=== PATIENT | female | born 1965 | race American Indian/Alaskan Native ===

== ENCOUNTER 2017-06-18 18:10 | Inpatient (IN) | payer SELFPAY ==
[2017-06-18] MEDS ORDERED: XYLOCAINE CARDIAC IV ONE ×2 (18:16→18:45)
[2017-06-18] MEDS ORDERED: QUELICIN IV ONE ×2 (18:17→18:43)
[2017-06-18] MEDS ORDERED: ATIVAN ONE (18:29)
[2017-06-18] MEDS ORDERED: ASPIRIN PR ONE (18:30)
[2017-06-18] MEDS ORDERED: CORDARONE IV ONE (18:30)
[2017-06-18] MEDS ORDERED: NITRO-BID 2% TP ONE (18:33)
--- NOTE | 2017-06-18 18:33 | Emergency Department Report ---
HPI - General Time Seen by Provider: 06/18/17 18:22 - HPI HPI: Room 18 The patient is a 51-year-old female brought in by EMS with decreased responsiveness and chest pain. EMS [facility] states they found the patient with "foam" coming out of her mouth and decreased responsiveness. EMS states they administered Narcan and the patient became more responsive but still appeared somewhat agitated and complained of chest pain. EMS states at that time the patient admitted to taking a "white powdery substance." In the ED the patient complained of chest pain but then went unresponsive. Patient was found to be in V. fib was defibrillated 1 with return of spontaneous circulation. EKG in the ED revealed evidence of STEMI and cardiology was called. Location: Cardiovascular system, see above Duration: [See above] Quality: [See above] Severity: Severe Modifying factors: [see above] Context: [see above] Mode of transportation: [not driving] ED Past Medical Hx - Past Medical History Additional medical history: Unknown - Surgical History Additional Surgical History: Unknown - Family History Family history: no significant - Social History Smoking Status: Unknown if ever smoked ED Review of Systems ROS: Stated complaint: OVERDOSE Other details as noted in HPI Comment: Unobtainable due to pts medical conditions Cardiovascular: chest pain Physical Exam - Physical Exam Physical Exam: GENERAL: The patient is well-developed disheveled appearing female lying on stretcher unresponsive HEENT: Normocephalic. Pupils 3 mm and reactive bilaterally. Extraocular motions are intact. Patient has moist mucous membranes. NECK: Supple. Trachea midline CHEST/LUNGS: Clear to auscultation. Sounds equal bilaterally with bagging after intubation HEART/CARDIOVASCULAR: Regular. There is tachycardia. There is no gallop rub or murmur. ABDOMEN: Abdomen is soft, nontender. Patient has normal bowel sounds. There is no abdominal distention. SKIN: There is no rash. There is no edema. There is no diaphoresis. NEURO: GCS 3T MUSCULOSKELETAL: There is no evidence of acute injury. ED Course - Consultations Consultation #1: 06/18/17 18:[address] Brock- Will reviewed EKG and call back 06/18/17 18:32 Dr. Brock states will take patient to the Reimbursement Counselor - Intubation Time Out Performed: No Sedative: Versed Mg Given: 5 Paralytic: Succinylcholine Mg Given: 100 Laryngoscope: Jodee Size: 3 ET Tube Size: 7 Tube Secured Depth (cm): 21 Tube Secured Location: lips Tube Placement Confirmation: equal breath sounds bilat, no breath sounds over epi, confirmation by capnometr Intubation Complications: other (initial attempt resulted in esophageal intubation. ET tube was removed patient reintubated endotracheally) ED Medical Decision Making - Lab Data Result diagrams: 06/18/17 18:25 06/18/17 18:25 Laboratory Tests 06/18/17 06/18/17 06/18/17 18:25 18:25 18:25 WBC 14.2 H RBC 4.74 Hgb 14.7 H Hct 44.7 H MCV 94 MCH 31 MCHC 33 RDW 14.5 Plt Count 266 Lymph % (Auto) 30.6 Stanley % (Auto) 6.6 Eos % (Auto) 0.3 Baso % (Auto) 0.5 Lymph # 4.3 Stanley # 0.9 H Eos # 0.0 Baso # 0.1 Seg Neutrophils % 62.0 Seg Neutrophils # 8.8 H PT 13.5 INR 0.98 APTT 29.9 Sodium 141 Potassium 4.1 Chloride 99.0 Carbon Dioxide 23 Anion Gap 23 BUN 8 Creatinine 1.1 Estimated GFR 44 BUN/Creatinine Ratio 7 Glucose 203 H Calcium 8.8 Total Creatine Kinase 96 CK-MB (CK-2) 1.7 CK-MB (CK-2) Rel Index 1.7 Troponin T < 0.010 - EKG Data -: EKG Interpreted by Me EKG shows normal: sinus rhythm - EKG Data When compared to previous EKG there are: previous EKG unavailable Interpretation: acute DE - Radiology Data Radiology results: report reviewed (chest x-ray), image reviewed (chest x-ray) interpreted by me: Chest x-ray-ET tube in appropriate position. No focal infiltrates, no pneumothorax - Differential Diagnosis STEMI, cardiac arrest Critical Care Time: Yes Critical care time in (mins) excluding proc time.: 40 Critical care attestation.: If time is entered above; I have spent that time in minutes in the direct care of this critically ill patient, excluding procedure time. ED Disposition Clinical Impression: Cardiac arrest, STEMI (ST elevation myocardial infarction) Disposition: DC-[id number] OP ADMIT IP TO THIS HOSP Is pt being admited?: Yes Does the pt Need Aspirin: Yes Condition: Serious Time of Disposition: 19:07 (awaiting ship laborer)
[2017-06-18 18:39] LABS: Basophils # (Auto) 0.1 K/mm3 (0.0-0.1); Basophils % (Auto) 0.5 % (0.0-1.8); Eosinophils % (Auto) 0.3 % (0.0-4.3); Hematocrit 44.7 % (30.3-42.9); Hemoglobin 14.7 gm/dl (10.1-14.3); Lymphocytes # (Auto) 4.3 K/mm3 (1.2-5.4); Lymphocytes % (Auto) 30.6 % (13.4-35.0); Mean Corpuscular HGB Conc 33 % (30-34); Mean Corpuscular Hemoglobin 31 pg (28-32); Mean Corpuscular Volume 94 fl (79-97); Monocytes # (Auto) 0.9 K/mm3 (0.0-0.8); Monocytes % (Auto) 6.6 % (0.0-7.3); Platelet Count 266 K/mm3 (140-440); Red Blood Count 4.74 M/mm3 (3.65-5.03); Red Cell Distribution Width 14.5 % (13.2-15.2)
[2017-06-18 18:43] LABS: INR 0.98 (0.87-1.13); Partial Thromboplastin Time 29.9 Sec. (24.2-36.6)
[2017-06-18 18:47] LABS: Creatine Kinase MB 1.7 ng/mL (0.0-4.0)
[2017-06-18 18:48] LABS: BUN/Creatinine Ratio 7; Blood Urea Nitrogen 8 mg/dL (7-17); Calcium 8.8 mg/dL (8.4-10.2); Hemolysis Index 6
[2017-06-18] MEDS ORDERED: NACL 0.9% 1000 ML 1,000 ML ONE (18:51)
[2017-06-18] MEDS ORDERED: HEPARIN 10,000 UNITS/10 ML ONE ×2 (18:56→19:11)
[2017-06-18] MEDS ORDERED: HEPARIN 10,000 UNITS/10 ML IV ONE (18:56)
[2017-06-18] MEDS ORDERED: MIDAZOLAM 100 MG in NACL 0.9% 80 ML IV SCH (19:00)
[2017-06-18] MEDS ORDERED: NACL 0.9% 1000 ML 1,000 ML IV ONE (19:00)
[2017-06-18] MEDS ORDERED: CORDARONE 900 MG in D5W 482 ML IV SCH (19:00)
[2017-06-18] MEDS ORDERED: HEPARIN/ 0.45% NACL-25,000 UNIT/500 ML 25,000 UNIT/500 ML BAG IV SCH (19:00)
[2017-06-18 19:06] LABS: Amphetamine Screen,Urine PRESUMPTIVE NEGATIVE; Benzodiazepines Screen,Urine PRESUMPTIVE NEGATIVE; Methadone Screen,Urine PRESUMPTIVE NEGATIVE; Opiate Screen,Urine PRESUMPTIVE NEGATIVE
[2017-06-18] MEDS ORDERED: XYLOCAINE 2% INFILTRATI ONE (19:11)
[2017-06-18] MEDS ORDERED: HEPARIN/NS 5000 UNIT/500ML(CATH LAB) 1,000 ML IR ONE (19:11)
[2017-06-18] MEDS ORDERED: NITROGLYCERIN SYRINGE 3 ML ONE (19:11)
[2017-06-18] MEDS ORDERED: CALAN ONE (19:11)
[2017-06-18] MEDS ORDERED: SUBLIMAZE ONE (19:12)
[2017-06-18] MEDS ORDERED: VERSED ONE ×2 (19:12→19:41)
[2017-06-18] MEDS ORDERED: NACL 0.9% 500 ML 500 ML ONE (19:12)
[2017-06-18 19:19] LABS: Cannabinoid Screen,Urine PRESUMPTIVE POSITIVE; Cocaine Screen,Urine PRESUMPTIVE POSITIVE
[2017-06-18] MEDS ORDERED: VERSED IV ONE (19:43)
[2017-06-18] MEDS ORDERED: AGGRASTAT DRIP (12.5 MG/250 ML) 12,500 MCG/250 ML BAG IV ONE (19:56)
--- NOTE | 2017-06-18 20:08 | History and Physical Report ---
History of Present Illness Date of examination: 06/18/17 Date of admission: 06/18/2017 Chief complaint: Chief complaint: #1 chest pain #2 ventricular fibrillation #3 decreased responsiveness History of present illness: WALDEMAR: 51-year-old female with history of cocaine abuse was brought in by EMS for decreased responsiveness and chest pain. Apparently EMS received a call from [place]. Patient was found with decreased responsiveness and white foam coming out of her mouth. EMS states that they administered Narcan and the patient became more responsive but still appeared somewhat agitated and complained of chest pain. Also patient admitted to taking cocaine. In the form of white powdery substance. In the emergency room the patient complained of chest pain and then went unresponsive. Patient was found to be in ventricular fibrillation and was defibrillated with return of spontaneous circulation after 1 attempt. EKG in the emergency room revealed evidence of STEMI and cardiology was called. Patient was taken to the Casework Supervisor from the emergency room within an hour after intubation. - Past Medical History Additional medical history: Unknown - Surgical History Additional Surgical History: Unknown - Family History Family history: Unknown - Social History Smoking Status: On cocaine Review of Systems ROS: Stated complaint: OVERDOSE Other details as noted in HPI Comment: Unobtainable due to pts medical conditions Cardiovascular: chest pain Medications and Allergies Allergies Allergy/AdvReac Type Severity Reaction Status Date / Time Unable to Assess Allergy Unverified 06/18/17 18:43 Active Meds: Active Medications Amiodarone HCl 900 mg/ (Dextrose) 500 mls @ 33.33 mls/hr IV DIRECT GISSEL; Protocol Midazolam HCl 100 mg/ Sodium (Chloride) 100 mls @ 2 mls/hr IV TITR GISSEL; Protocol Last Admin: 06/18/17 19:15 Dose: 2 mg/hr, 2 mls/hr Heparin Sodium/Sodium Chloride (Heparin/ 0.45% Nacl-25,000 Unit/500 Ml) 25,000 unit in 500 mls @ 20 mls/hr IV TITRATE GISSEL; Protocol Exam - Constitutional Vitals: Temp Pulse Resp BP Pulse Ox 90 13 103/76 100 06/18/17 19:15 06/18/17 19:15 06/18/17 19:15 06/18/17 19:15 General appearance: Present: severe distress, disheveled - EENT Eyes: Present: PERRL ENT: hearing intact, clear oral mucosa - Neck Neck: Present: supple, normal ROM - Respiratory Respiratory effort: normal Respiratory: bilateral: CTA - Cardiovascular Rhythm: regular Heart Sounds: Present: S1 & S2. Absent: rub, click - Extremities Extremities: no ischemia, pulses intact, pulses symmetrical, No edema Peripheral Pulses: within normal limits - Abdominal General gastrointestinal: Present: soft, non-tender, non-distended, normal bowel sounds Female genitourinary: Present: normal - Rectal Rectal Exam: deferred - Integumentary Integumentary: Present: clear, warm, dry - Musculoskeletal Musculoskeletal: other - Neurologic Neurologic: CNII-XII intact, moves all extremities Results - Labs CBC & Chem 7: 06/18/17 18:25 06/18/17 18:25 Labs: Laboratory Last Values WBC 14.2 K/mm3 (4.5-11.0) H 06/18/17 18:25 RBC 4.74 M/mm3 (3.65-5.03) 06/18/17 18:25 Hgb 14.7 gm/dl (10.1-14.3) H 06/18/17 18:25 Hct 44.7 % (30.3-42.9) H 06/18/17 18:25 MCV 94 fl (79-97) 06/18/17 18:25 MCH 31 pg (28-32) 06/18/17 18:25 MCHC 33 % (30-34) 06/18/17 18:25 RDW 14.5 % (13.2-15.2) 06/18/17 18:25 Plt Count 266 K/mm3 (140-440) 06/18/17 18:25 Lymph % (Auto) 30.6 % (13.4-35.0) 06/18/17 18:25 [place] % (Auto) 6.6 % (0.0-7.3) 06/18/17 18:25 Eos % (Auto) 0.3 % (0.0-4.3) 06/18/17 18:25 Baso % (Auto) 0.5 % (0.0-1.8) 06/18/17 18:25 Lymph # 4.3 K/mm3 (1.2-5.4) 06/18/17 18:25 [place] # 0.9 K/mm3 (0.0-0.8) H 06/18/17 18:25 Eos # 0.0 K/mm3 (0.0-0.4) 06/18/17 18:25 Baso # 0.1 K/mm3 (0.0-0.1) 06/18/17 18:25 Seg Neutrophils % 62.0 % (40.0-70.0) 06/18/17 18:25 Seg Neutrophils # 8.8 K/mm3 (1.8-7.7) H 06/18/17 18:25 PT 13.5 Sec. (12.2-14.9) 06/18/17 18:25 INR 0.98 (0.87-1.13) 06/18/17 18:25 APTT 29.9 Sec. (24.2-36.6) 06/18/17 18:25 Sodium 141 mmol/L (137-145) 06/18/17 18:25 Potassium 4.1 mmol/L (3.6-5.0) 06/18/17 18:25 Chloride 99.0 mmol/L (98-107) 06/18/17 18:25 Carbon Dioxide 23 mmol/L (22-30) 06/18/17 18:25 Anion Gap 23 mmol/L 06/18/17 18:25 BUN 8 mg/dL (7-17) 06/18/17 18:25 Creatinine 1.1 mg/dL (0.7-1.2) 06/18/17 18:25 Estimated GFR 44 ml/min 06/18/17 18:25 BUN/Creatinine Ratio 7 % 06/18/17 18:25 Glucose 203 mg/dL (65-100) H 06/18/17 18:25 Calcium 8.8 mg/dL (8.4-10.2) 06/18/17 18:25 Total Creatine Kinase 96 units/L (30-135) 06/18/17 18:25 CK-MB (CK-2) 1.7 ng/mL (0.0-4.0) 06/18/17 18: CK-MB (CK-2) Rel Index 1.7 (0-4) 06/18/17 18:25 Troponin T < 0.010 ng/mL (0.00-0.029) 06/18/17 18:25 Urine Opiates Screen Presumptive negative 04/12/18 18:41 Urine Methadone Screen Presumptive negative 06/18/17 18:41 Ur Barbiturates Screen Presumptive negative 06/18/17 18:41 Ur Phencyclidine Scrn Presumptive negative 18 18:41 Ur Amphetamines Screen Presumptive negative 18 18:41 U Benzodiazepines Scrn Presumptive negative 06/18/17 18:41 Urine Cocaine Screen Presumptive positive 06/18/17 18:41 U Marijuana (THC) Screen Presumptive positive 06/18/17 18:41 Drugs of Abuse Note Disclamer 06/18/17 18:41 - Imaging and Cardiology EKG: report reviewed (STEMI) Imaging and Cardiology: Chest x-ray: FINDINGS: Lines, tubes, and devices: Endotracheal tube terminates above the clavicles in satisfactory position. This is at least 5 cm above the lenard. There is tubing overlying the region of the proximal right clavicle and a device overlying the right lung apex. Lungs and pleura: Trachea is normal in position. Lungs are clear of infiltrate, pleural effusion, vascular congestion, or pneumothorax. Cardiomediastinal silhouette: Cardiac and mediastinal silhouettes are unremarkable. Other: Bony structures are intact. IMPRESSION: No acute cardiopulmonary process seen. Assessment and Plan Assessment and plan: The high probability of a clinically significant, sudden or life threatening deterioration of the [Pulmonary, cadiac, renal] system(s) required my full and direct attention, intervention and personal management. The aggregate critical care time was [45] minutes. This time is in addition to time spent performing reported procedures but includes the following: [x] Data Review and interpretation [x] Patient assessment and monitoring of vital signs [x] Documentation [x] Medication orders and management Advance Directives: Yes (full code) VTE prophylaxis?: Chemical Plan of care discussed with patient/family: Yes - Patient Problems (1) STEMI (ST elevation myocardial infarction) Current Visit: Yes Status: Acute Qualifiers: Involved coronary artery: LAD coronary artery Qualified Code(s): I21.02 - ST elevation (STEMI) myocardial infarction involving left anterior descending coronary artery Plan to address problem: 51y F who presented to ER with chest pain, VF arrest and respiratory failure. ECG was acute anterolateral STEMI. Emeregency cath protocol was activated. Delay in cardiac cath due to patient's clinical instability, rescusitative efforts and ET intubation. Cardiac cath showed 100% occlusion of LAD in its proximal segment. Successful PCI with 4.0 mm BM stent, ISIDORO 3 flow restored. Transferred to CCU for supportive management, prognosis guarded. Patient also started on Aggrastat drip. (2) Acute respiratory failure Current Visit: Yes Status: Acute Qualifiers: Respiratory failure complication: hypoxia Qualified Code(s): J96.01 - Acute respiratory failure with hypoxia Plan to address problem: Vent management and DUONEBS Empiric antibiotics for possible aspiration pneumonia Low-dose IV Solu-Medrol (3) Cocaine dependence Current Visit: Yes Status: Chronic Qualifiers: Substance use status: with other cocaine-induced disorder Qualified Code(s) : F14.288 - Cocaine dependence with other cocaine-induced disorder; F14.28 - Cocaine dependence with other cocaine-induced disorder Plan to address problem: Patient had acute CT secondary to LAD obstruction and precipitated by cocaine inhalation. CIWA protocol for agitation (4) Aspiration pneumonia Current Visit: Yes Status: Acute Qualifiers: Aspiration pneumonia type: unspecified Plan to address problem: A high possibility secondary to unresponsiveness and ventricular fibrillation for which cardioversion was used IV Zosyn initiated (5) Hyperglycemia Current Visit: Yes Status: Acute Plan to address problem: Unknown whether patient is a diabetic. Check hemoglobin A1c. Accu-Cheks every 6 hours and insulin dose coverage with moderate dose sliding scale protocol (6) DVT prophylaxis Current Visit: Yes Status: Acute Plan to address problem: Heparin to be started after Aggrastat is stopped as subcutaneous 5000 every 8
[2017-06-18] MEDS ORDERED: ZOFRAN IV PRN (20:10)
[2017-06-18] MEDS ORDERED: MORPHINE IV PRN (20:10)
[2017-06-18] MEDS ORDERED: SODIUM CHLORIDE FLUSH SYRINGE 10 ML IV PRN (20:10)
[2017-06-18] MEDS ORDERED: TYLENOL PO PRN (20:10)
--- NOTE | 2017-06-18 20:18 | XRay Report ---
FINAL REPORT EXAM: XR CHEST 1V AP HISTORY: status post cardiac arrest TECHNIQUE: AP portable view of the chest PRIORS: None. FINDINGS: Lines, tubes, and devices: Endotracheal tube terminates above the clavicles in satisfactory position. This is at least 5 cm above the lenard. There is tubing overlying the region of the proximal right clavicle and a device overlying the right lung apex. Lungs and pleura: Trachea is normal in position. Lungs are clear of infiltrate, pleural effusion, vascular congestion, or pneumothorax. Cardiomediastinal silhouette: Cardiac and mediastinal silhouettes are unremarkable. Other: Bony structures are intact. IMPRESSION: No acute cardiopulmonary process seen.
[2017-06-18] MEDS ORDERED: PLAVIX ONE (20:22)
[2017-06-18] MEDS ORDERED: ALUM-MAG HYDROX-SIMETH 200-200-20MG/5ML ONE (20:27)
--- NOTE | 2017-06-18 20:31 | Consultation ---
History of Present Illness Consult date: 06/18/17 Consult reason: cardiac arrest, other (STEMI) History of present illness: 51y F who presented to ER with chest pain, VF arrest and respiratory failure. ECG was acute anterolateral STEMI. Emeregency cath protocol was activated. Delay in cardiac cath due to patient's clinical instability, rescusitative efforts and ET intubation. Cardiac cath showed 100% occlusion of LAD in its proximal segment. Successful PCI with 4.0 mm BM stent, ISIDORO 3 flow restored. Transferred to CCU for supportive management, prognosis guarded. Medications and Allergies Allergies Allergy/AdvReac Type Severity Reaction Status Date / Time Unable to Assess Allergy Unverified 06/18/17 18:43 Active Meds: Active Medications Acetaminophen (Tylenol) 650 mg PO Q4H PRN PRN Reason: Pain MILD(1-3)/Fever >100.5/WALDROP Heparin Sodium (Porcine) (Heparin) 5,000 unit SUB-Q Q12HR GISSEL Amiodarone HCl 900 mg/ (Dextrose) 500 mls @ 33.33 mls/hr IV DIRECT GISSEL; Protocol Midazolam HCl 100 mg/ Sodium (Chloride) 100 mls @ 2 mls/hr IV TITR GISSEL; Protocol Last Admin: 06/18/17 19:15 Dose: 2 mg/hr, 2 mls/hr Heparin Sodium/Sodium Chloride (Heparin/ 0.45% Nacl-25,000 Unit/500 Ml) 25,000 unit in 500 mls @ 20 mls/hr IV TITRATE GISSEL; Protocol Sodium Chloride (Nacl 0.9% 1000 Ml) 1,000 mls @ 100 mls/hr IV DIRECT GISSEL Morphine Sulfate (Morphine) 2 mg IV Q4H PRN PRN Reason: Pain, Moderate (4-6) Ondansetron HCl (Zofran) 4 mg IV Q8H PRN PRN Reason: Nausea And Vomiting Sodium Chloride (Sodium Chloride Flush Syringe 10 Ml) 10 ml IV BID GISSEL Sodium Chloride (Sodium Chloride Flush Syringe 10 Ml) 10 ml IV PRN PRN PRN Reason: LINE FLUSH Review of Systems ROS unobtainable: due to endotracheal tube, due to mental status Physical Examination Vital Signs Pulse Ox 90 06/18/17 18:12 General appearance: other (Unresponsive, vent) HEENT: Positive: PERRL Neck: Positive: neck supple Cardiac: Positive: Reg Rate and Rhythm Lungs: Positive: Decreased Breath Sounds Neuro: Positive: Other (Unresponsive, vent) Abdomen: Positive: Soft Female genitourinary: deferred Skin: Positive: Clear Extremities: Absent: edema Results 06/18/17 18:25 06/18/17 18:25 Cardiac Enzymes 06/18/17 Range/Units 18:25 CK-MB (CK-2) 1.7 (0.0-4.0) ng/mL Coagulation 06/18/17 Range/Units 18:25 PT 13.5 (12.2-14.9) Sec. INR 0.98 (0.87-1.13) APTT 29.9 (24.2-36.6) Sec. CBC 06/18/17 Range/Units 18:25 WBC 14.2 H (4.5-11.0) K/mm3 RBC 4.74 (3.65-5.03) M/mm3 Hgb 14.7 H (10.1-14.3) gm/dl Hct 44.7 H (30.3-42.9) % Plt Count 266 (140-440) K/mm3 Lymph # 4.3 (1.2-5.4) K/mm3 Rich # 0.9 H (0.0-0.8) K/mm3 Eos # 0.0 (0.0-0.4) K/mm3 Baso # 0.1 (0.0-0.1) K/mm3 Comprehensive Metabolic Panel 06/18/17 Range/Units 18:25 Sodium 141 (137-145) mmol/L Potassium 4.1 (3.6-5.0) mmol/L Chloride 99.0 (98-107) mmol/L Carbon Dioxide 23 (22-30) mmol/L BUN 8 (7-17) mg/dL Creatinine 1.1 (0.7-1.2) mg/dL Glucose 203 H (65-100) mg/dL Calcium 8.8 (8.4-10.2) mg/dL EKG interpretations - Telemetry EKG Rhythm: Sinus Rhythm (STEMI of anterolateral wall) Assessment and Plan Cardiac cath showed 100% occlusion of LAD in its proximal segment. Successful PCI with 4.0 mm BM stent, ISIDORO 3 flow restored. Transferred to CCU for supportive management, prognosis guarded.
[2017-06-18] MEDS ORDERED: DUONEB *Not for PRN Use IH (20:49)
[2017-06-18] MEDS ORDERED: HumaLOG SUB-Q ONE (20:54)
[2017-06-18] MEDS ORDERED: SIMPLE SYRUP FEEDTUBE PRN ×2 (20:55)
[2017-06-18] MEDS ORDERED: PANCREAZE DR 10,500 UNIT FEEDTUBE PRN (20:55)
[2017-06-18] MEDS ORDERED: SODIUM BICARBONATE FEEDTUBE PRN (20:55)
[2017-06-18] MEDS ORDERED: AGGRASTAT DRIP (12.5 MG/250 ML) 12,500 MCG/250 ML BAG IV SCH (21:00)
[2017-06-18] MEDS ORDERED: NACL 0.9% 1000 ML 1,000 ML IV SCH ×2 (21:00)
[2017-06-18] MEDS ORDERED: HEPARIN SUB-Q SCH (22:00)
[2017-06-18 23:06] LABS: Alanine Aminotransferase 30 units/L (7-56); Albumin 3.5 g/dL (3.9-5); BUN/Creatinine Ratio 9; Blood Urea Nitrogen 9 mg/dL (7-17); Calcium 8.5 mg/dL (8.4-10.2); Chol/HDL Ratio 2.39 %; HDL Cholesterol 51 mg/dL (40-59); Hemolysis Index 19; LDL Cholesterol,Direct 57 mg/dL (50-130)
[2017-06-18] MEDS: DIPRIVAN 10 MG/ML 1,000 MG/100 ML BOTTLE IV SCH (23:24)
[2017-06-19] MEDS: SODIUM CHLORIDE FLUSH SYRINGE 10 ML IV SCH ×3 (00:08→22:28)
[2017-06-19] MEDS: ZOSYN/NS 3.375GM/50ML 3.375 GM/50 ML BAG IV SCH ×2 (00:08→05:50)
[2017-06-19] MEDS: PEPCID IV SCH ×2 (00:09→09:37)
--- NOTE | 2017-06-19 01:35 | XRay Report ---
FINAL REPORT EXAM: XR ABDOMEN 1V AP HISTORY: OGT PLACED IN ADAPTED PHYSICAL EDUCATION AIDE COMPARISON: None available. FINDINGS: AP view of the abdomen obtained. Distal tip of the NG tube projects over the mid stomach. There is retained contrast within renal collecting system. IMPRESSION: Distal tip of the NG tube projects over the mid stomach.
--- NOTE | 2017-06-19 01:35 | XRay Report ---
FINAL REPORT EXAM: XR CHEST 1V AP HISTORY: post pci COMPARISON: June 18, 2017. FINDINGS: Frontal view(s) of the chest obtained. Heart normal in size. ETT in satisfactory position. Distal tip 4.7 centimeters in the lenard. NG tube is present. Distal tip not visualized but extends at least to the mid stomach. Lungs are grossly clear. No focal lucency to suggest pneumothorax. IMPRESSION: ETT and NG tube in gross satisfactory position.
[2017-06-19] MEDS: LOPRESSOR PO SCH ×4 (01:47→22:25)
[2017-06-19 04:22] LABS: Hematocrit 39.4 % (30.3-42.9); Hemoglobin 12.6 gm/dl (10.1-14.3); Mean Corpuscular HGB Conc 32 % (30-34); Mean Corpuscular Hemoglobin 30 pg (28-32); Mean Corpuscular Volume 94 fl (79-97); Platelet Count 226 K/mm3 (140-440); Red Blood Count 4.19 M/mm3 (3.65-5.03); Red Cell Distribution Width 14.4 % (13.2-15.2)
[2017-06-19 04:45] LABS: Creatine Kinase MB 86.8 ng/mL (0.0-4.0)
[2017-06-19 04:48] LABS: Alanine Aminotransferase 33 units/L (7-56); Albumin 3.8 g/dL (3.9-5); BUN/Creatinine Ratio 14; Blood Urea Nitrogen 11 mg/dL (7-17); Calcium 8.6 mg/dL (8.4-10.2); Hemolysis Index 5
[2017-06-19 05:15] LABS: Anisocytosis 1+; Basophils % (Manual) 0 % (0.0-1.8); Eosinophils % (Manual) 0 % (0.0-4.3); Platelet Estimate Consistent w Auto; Total Cells Counted 100
[2017-06-19] MEDS: DIPRIVAN 10 MG/ML 1,000 MG/100 ML BOTTLE IV SCH (07:10)
[2017-06-19] MEDS ORDERED: DUONEB *Not for PRN Use IH SCH (08:00)
--- NOTE | 2017-06-19 08:16 | Progress Note ---
Assessment and Plan Assessment and plan: STEMI s/p cardiac cath, PCI with bare metal stent. She is on Aspirin, Plavix , Aggrastat. May need to discontinue Aggrastat because of oral bleeding Cardiac arrest due to ventricular fibrillation, STEMI. s/p defibrillated Acute respiratory failure. Intubated, on ventilator. Hopefully wean from vent soon Cocaine abuse. Will skilled nursing facility counselor after extubation, when stable. Bright red blood from mouth. Give Protonix drip, stat H/H and Q6h Full code status. The high probability of a clinically significant, sudden or life threatening deterioration of the [3] system(s) required my full and direct attention, intervention and personal management. The aggregate critical care time was [35] minutes. This time is in addition to time spent performing reported procedures but includes the following: [x] Data Review and interpretation [x] Patient assessment and monitoring of vital signs [x] Documentation [x] Medication orders and management History Interval history: Patient with vfib arrest, STEMI,intubated Moderate amount blood coming from mouth Hospitalist Physical - Physical exam Narrative exam: Gen appearance: Not in acute distress, lying in bed, HEENT:Intubated,bright red blood with clots coming from mouth Neck:supple, no JVD Lungs: Coarse breath sounds bilaterally, no wheeze Heart: S1 and S2 regular, no murmurs, rubs or gallop Abdomen: soft, non tender, non distended, normal bowel sounds Ext: No edema, no clubbing, no cyanosis. Neuro: Intubated, sedated - Constitutional Vitals: Temp Pulse Resp BP Pulse Ox 97.8 F 82 14 130/97 100 06/19/17 04:00 06/19/17 07:50 06/19/17 07:50 06/19/17 07:42 06/19/17 07:42 General appearance: Present: disheveled Results - Labs CBC & Chem 7: 06/19/17 09:46 06/19/17 09:46 Labs: Laboratory Last Values WBC 11.6 K/mm3 (4.5-11.0) H 06/19/17 03:48 RBC 4.19 M/mm3 (3.65-5.03) 06/19/17 03:48 Hgb 12.6 gm/dl (10.1-14.3) 06/19/17 03:48 Hct 39.4 % (30.3-42.9) 06/19/17 03:48 MCV 94 fl (79-97) 06/19/17 03:48 MCH 30 pg (28-32) 06/19/17 03:48 MCHC 32 % (30-34) 06/19/17 03:48 RDW 14.4 % (13.2-15.2) 06/19/17 03:48 Plt Count 226 K/mm3 (140-440) 06/19/17 03:48 Lymph % (Auto) 30.6 % (13.4-35.0) 06/18/17 18:25 [place] % (Auto) 6.6 % (0.0-7.3) 06/18/17 18:25 Eos % (Auto) 0.3 % (0.0-4.3) 06/18/17 18:25 Baso % (Auto) 0.5 % (0.0-1.8) 06/18/17 18:25 Lymph # 4.3 K/mm3 (1.2-5.4) 06/18/17 18:25 [place] # 0.9 K/mm3 (0.0-0.8) H 06/18/17 18:25 Eos # 0.0 K/mm3 (0.0-0.4) 06/18/17 18:25 Baso # 0.1 K/mm3 (0.0-0.1) 06/18/17 18:25 Add Manual Diff Complete 06/19/17 03:48 Total Counted 100 06/19/17 03:48 Seg Neutrophils % Senior [employer] Network Engineer 06/19/17 03:48 Seg Neuts % (Manual) 94.0 % (40.0-70.0) H 06/19/17 03:48 Band Neutrophils % 0 % 06/19/17 03:48 Lymphocytes % (Manual) 4.0 % (13.4-35.0) L 06/19/17 03:48 Reactive Lymphs % (Man) 0 % 06/19/17 03:48 Monocytes % (Manual) 2.0 % (0.0-7.3) 06/19/17 03:48 Eosinophils % (Manual) 0 % (0.0-4.3) 06/19/17 03:48 Basophils % (Manual) 0 % (0.0-1.8) 06/19/17 03:48 Metamyelocytes % 0 % 06/19/17 03:48 Myelocytes % 0 % 06/19/17 03:48 Promyelocytes % 0 % 06/19/17 03:48 Blast Cells % 0 % 06/19/17 03:48 Nucleated RBC % Not Reportable 06/19/17 03:48 Seg Neutrophils # 8.8 K/mm3 (1.8-7.7) H 06/18/17 18:25 Seg Neutrophils # Man 10.9 K/mm3 (1.8-7.7) H 06/19/17 03:48 Band Neutrophils # 0.0 K/mm3 06/19/17 03:48 Lymphocytes # (Manual) 0.5 K/mm3 (1.2-5.4) L 06/19/17 03:48 Abs React Lymphs (Man) 0.0 K/mm3 06/19/17 03:48 Monocytes # (Manual) 0.2 K/mm3 (0.0-0.8) 06/19/17 03:48 Eosinophils # (Manual) 0.0 K/mm3 (0.0-0.4) 06/19/17 03:48 Basophils # (Manual) 0.0 K/mm3 (0.0-0.1) 06/19/17 03:48 Metamyelocytes # 0.0 K/mm3 06/19/17 03:48 Myelocytes # 0.0 K/mm3 06/19/17 03:48 Promyelocytes # 0.0 K/mm3 06/19/17 03:48 Blast Cells # 0.0 K/mm3 06/19/17 03:48 WBC Morphology Not Reportable 06/19/17 03:48 Hypersegmented Neuts Not Reportable 06/19/17 03:48 Hyposegmented Neuts Not Reportable 06/19/17 03:48 Hypogranular Neuts Not Reportable 06/19/17 03:48 Smudge Cells Not Reportable 06/19/17 03:48 Toxic Granulation Not Reportable 06/19/17 03:48 Toxic Vacuolation Not Reportable 06/19/17 03:48 Dohle Bodies Not Reportable 06/19/17 03:48 Pelger-Huet Anomaly Not Reportable 06/19/17 03:48 Allan Rods Not Reportable 06/19/17 03:48 Platelet Estimate Consistent w auto 06/19/17 03:48 Clumped Platelets Not Reportable 06/19/17 03:48 Plt Clumps, EDTA Not Reportable 06/19/17 03:48 Large Platelets Not Reportable 06/19/17 03:48 Giant Platelets Not Reportable 06/19/17 03:48 Platelet Satelliting Not Reportable 06/19/17 03:48 Plt Morphology Comment Not Reportable 06/19/17 03:48 RBC Morphology Not Reportable 06/19/17 03:48 Dimorphic RBCs Not Reportable 06/19/17 03:48 Polychromasia Not Reportable 06/19/17 03:48 Hypochromasia Not Reportable 06/19/17 03:48 Poikilocytosis Not Reportable 06/19/17 03:48 Anisocytosis 1+ 06/19/17 03:48 Microcytosis Not Reportable 06/19/17 03:48 Macrocytosis Not Reportable 06/19/17 03:48 Spherocytes Not Reportable 06/19/17 03:48 Pappenheimer Bodies Not Reportable 06/19/17 03:48 Sickle Cells Not Reportable 06/19/17 03:48 Target Cells Not Reportable 06/19/17 03:48 Tear Drop Cells Not Reportable 06/19/17 03:48 Ovalocytes Not Reportable 06/19/17 03:48 Helmet Cells Not Reportable 06/19/17 03:48 [place] Bodies Not Reportable 06/19/17 03:48 [place] Rings Not Reportable 06/19/17 03:48 [place] Cells Not Reportable 06/19/17 03:48 Bite Cells Not Reportable 06/19/17 03:48 Crenated Cell Not Reportable 06/19/17 03:48 Elliptocytes Not Reportable 06/19/17 03:48 Acanthocytes (Spur) Not Reportable 06/19/17 03:48 Rouleaux Not Reportable 06/19/17 03:48 Hemoglobin C Crystals Not Reportable 06/19/17 03:48 Schistocytes Not Reportable 06/19/17 03:48 Malaria parasites Not Reportable 06/19/17 03:48 Hiren Bodies Not Reportable 06/19/17 03:48 Hem Pathologist Commnt No 06/19/17 03:48 PT 13.5 Sec. (12.2-14.9) 06/18/17 18:25 INR 0.98 (0.87-1.13) 06/18/17 18:25 APTT 29.9 Sec. (24.2-36.6) 06/18/17 18:25 POC ABG pH 7.356 (7.35-7.45) 06/19/17 05:34 POC ABG pCO2 42.7 (35-45) 06/19/17 05:34 POC ABG pO2 229 (80-105) H 06/19/17 05:34 POC ABG HCO3 23.9 06/19/17 05:34 POC ABG Total CO2 25 06/19/17 05:34 POC ABG O2 Sat 100 06/19/17 05:34 POC ABG Base Excess -2 06/19/17 05:34 FiO2 60 % 06/19/17 05:34 Sodium 140 mmol/L (137-145) 06/19/17 03:48 Potassium 5.6 mmol/L (3.6-5.0) H D 06/19/17 03:48 Chloride 104.6 mmol/L (98-107) 06/19/17 03:48 Carbon Dioxide 24 mmol/L (22-30) 06/19/17 03:48 Anion Gap 17 mmol/L 06/19/17 03:48 BUN 11 mg/dL (7-17) 06/19/17 03:48 Creatinine 0.8 mg/dL (0.7-1.2) 06/19/17 03:48 Estimated GFR > 60 ml/min 06/19/17 03:48 BUN/Creatinine Ratio 14 % 06/19/17 03:48 Glucose 135 mg/dL (65-100) H 06/19/17 03:48 POC Glucose 111 (70-105) H 06/19/17 06:03 Hemoglobin A1c 5.3 % (4-6) 06/18/17 20:25 Calcium 8.6 mg/dL (8.4-10.2) 06/19/17 03:48 Total Bilirubin 0.40 mg/dL (0.1-1.2) 06/19/17 03:48 AST 84 units/L (5-40) H 06/19/17 03:48 ALT 33 units/L (7-56) 06/19/17 03:48 Alkaline Phosphatase 76 units/L (35-129) 06/19/17 03:48 Total Creatine Kinase 751 units/L (30-135) H 06/19/17 03:48 CK-MB (CK-2) 86.8 ng/mL (0.0-4.0) H 06/19/17 03:48 CK-MB (CK-2) Rel Index 11.5 (0-4) H 06/19/17 03:48 Troponin T 1.820 ng/mL (0.00-0.029) H* D 06/19/17 03:48 Total Protein 6.8 g/dL (6.3-8.2) 06/19/17 03:48 Albumin 3.8 g/dL (3.9-5) L 06/19/17 03:48 Albumin/Globulin Ratio 1.3 % 06/19/17 03:48 Triglycerides 67 mg/dL (2-149) 06/18/17 21:19 Cholesterol 122 mg/dL (50-199) 06/18/17 21:19 LDL Cholesterol Direct 57 mg/dL (50-130) 06/18/17 21:19 HDL Cholesterol 51 mg/dL (40-59) 06/18/17 21:19 Cholesterol/HDL Ratio 2.39 % 06/18/17 21:19 Urine Opiates Screen Presumptive negative 06/18/17 18:41 Urine Methadone Screen Presumptive negative 06/18/17 18:41 Ur Barbiturates Screen Presumptive negative 06/18/17 18:41 Ur Phencyclidine Scrn Presumptive negative 06/18/17 18:41 Ur Amphetamines Screen Presumptive negative 06/18/17 18:41 U Benzodiazepines Scrn Presumptive negative 06/18/17 18:41 Urine Cocaine Screen Presumptive positive 06/18/17 18:41 U Marijuana (THC) Screen Presumptive positive 06/18/17 18:41 Drugs of Abuse Note Disclamer 06/18/17 18:41
[2017-06-19] MEDS ORDERED: SODIUM BICARBONATE FEEDTUBE PRN (08:46)
[2017-06-19] MEDS ORDERED: PANCREAZE DR 10,500 UNIT FEEDTUBE PRN (08:46)
[2017-06-19] MEDS ORDERED: SIMPLE SYRUP FEEDTUBE PRN ×2 (08:46)
--- NOTE | 2017-06-19 08:57 | Progress Note ---
Assessment and Plan VF arrest Respiratory failure intubated on the vent Anterolateral STEM s/p PCI of the LAD in its proximal segment with 4.0 mm BM stent Substance abuse Plan: Echocardiogram for LVEF assessment. We will discontinue IV aggrastat s/t oral bleeding. Continue medical therapy for coronary artery disease and suppression of ventricular fibrillation. Subjective Date of service: 06/19/17 Interval history: Patient is unresponsive on the vent. Nurse reports oral bleeding this morning. BP is stable with a systolic of 130. H&H is stable. Objective Vital Signs Temp Pulse Pulse Resp Resp BP Pulse Ox 06/19/17 08:15 91 H 14 06/19/17 08:00 99.0 F 06/19/17 07:50 82 14 06/19/17 07:42 79 130/97 100 06/19/17 05:26 81 138/101 100 06/19/17 05:10 83 18 138/101 100 06/19/17 05:00 81 17 138/101 06/19/17 04:50 81 18 135/99 100 06/19/17 04:40 80 17 132/101 100 06/19/17 04:30 80 17 132/101 06/19/17 04:20 75 16 128/95 100 06/19/17 04:19 78 128/95 06/19/17 04:10 76 15 134/88 100 06/19/17 04:00 97.8 F 86 19 134/88 99 06/19/17 03:50 75 18 136/100 100 06/19/17 03:40 77 16 136/100 100 06/19/17 03:39 14 99 06/19/17 03:30 75 15 136/100 100 06/19/17 03:20 75 19 125/93 100 06/19/17 03:10 80 17 125/97 100 06/19/17 03:00 75 18 125/97 06/19/17 02:50 81 19 122/94 100 06/19/17 02:40 76 17 120/91 100 06/19/17 02:30 77 18 120/91 100 06/19/17 02:20 82 16 118/95 100 06/19/17 02:10 73 17 131/100 100 06/19/17 02:00 75 15 131/100 06/19/17 01:50 75 14 130/99 100 06/19/17 01:40 76 16 123/93 100 06/19/17 01:30 73 15 123/93 06/19/17 01:20 74 16 119/94 100 06/19/17 01:10 74 15 112/82 100 06/19/17 01:00 73 17 112/82 100 06/19/17 00:50 76 17 118/91 100 06/19/17 00:40 82 16 119/86 100 06/19/17 00:30 76 16 119/86 100 06/19/17 00:20 95 H 18 113/82 100 06/19/17 00:10 89 17 117/87 100 06/19/17 00:00 95.0 F L 83 15 117/87 100 06/18/17 23:50 79 16 95/64 100 06/18/17 23:40 75 17 95/64 100 06/18/17 23:39 16 98 06/18/17 23:35 77 16 95/64 100 06/18/17 23:30 81 14 95/64 100 06/18/17 23:20 93 H 17 106/77 100 06/18/17 23:10 73 16 105/77 100 06/18/17 23:00 74 17 105/77 100 06/18/17 22:50 89 21 113/84 100 06/18/17 22:40 74 16 111/72 100 06/18/17 22:30 75 20 111/72 100 06/18/17 22:20 73 16 112/78 100 06/18/17 22:10 73 16 105/76 100 06/18/17 22:00 96.6 F L 74 18 105/76 100 06/18/17 21:50 73 16 99 06/18/17 21:40 74 16 123/78 100 06/18/17 21:39 16 97 06/18/17 21:30 89 16 123/98 06/18/17 21:20 84 14 123/98 06/18/17 21:10 84 17 123/98 06/18/17 21:00 79 18 110/76 06/18/17 20:50 77 12 06/18/17 19:15 90 13 103/76 100 06/18/17 19:00 90 17 85/64 06/18/17 18:46 93 H 99 06/18/17 18:45 95 H 19 75/52 06/18/17 18:30 128 H 21 193/147 99 06/18/17 18:16 76 17 108/90 06/18/17 18:12 90 - Physical Examination General: Other (intubated on the vent) Cardiac: Positive: Reg Rate and Rhythm Neuro: Positive: Other (Unresponsive, vent) Abdomen: Positive: Soft Skin: Positive: Clear Extremities: Absent: edema - Labs and Meds Cardiac Enzymes 06/18/17 06/18/17 06/19/17 Range/Units 18:25 21:19 03:48 AST 41 H 84 H (5-40) units/L CK-MB (CK-2) 1.7 86.8 H (0.0-4.0) ng/mL Coagulation 06/18/17 Range/Units 18:25 PT 13.5 (12.2-14.9) Sec. INR 0.98 (0.87-1.13) APTT 29.9 (24.2-36.6) Sec. Lipids 06/18/17 Range/Units 21:19 Triglycerides 67 (2-149) mg/dL Cholesterol 122 (50-199) mg/dL HDL Cholesterol 51 (40-59) mg/dL Cholesterol/HDL Ratio 2.39 % CBC 06/18/17 06/19/17 Range/Units 18:25 03:48 WBC 14.2 H 11.6 H (4.5-11.0) K/mm3 RBC 4.74 4.19 (3.65-5.03) M/mm3 Hgb 14.7 H 12.6 (10.1-14.3) gm/dl Hct 44.7 H 39.4 (30.3-42.9) % Plt Count 266 226 (140-440) K/mm3 Lymph # 4.3 (1.2-5.4) K/mm3 [place] # 0.9 H (0.0-0.8) K/mm3 Eos # 0.0 (0.0-0.4) K/mm3 Baso # 0.1 (0.0-0.1) K/mm3 Comprehensive Metabolic Panel 06/18/17 06/18/17 06/19/17 Range/Units 18:25 21:19 03:48 Sodium 141 137 140 (137-145) mmol/L Potassium 4.1 3.7 5.6 H D (3.6-5.0) mmol/L Chloride 99.0 99.4 104.6 (98-107) mmol/L Carbon Dioxide 23 18 L 24 (22-30) mmol/L BUN 8 9 11 (7-17) mg/dL Creatinine 1.1 1.0 0.8 (0.7-1.2) mg/dL Glucose 203 H 241 H 135 H (65-100) mg/dL Calcium 8.8 8.5 8.6 (8.4-10.2) mg/dL AST 41 H 84 H (5-40) units/L ALT 30 33 (7-56) units/L Alkaline Phosphatase 78 76 (35-129) units/L Total Protein 7.1 6.8 (6.3-8.2) g/dL Albumin 3.5 L 3.8 L (3.9-5) g/dL - Imaging and Cardiology EKG: report reviewed (STEMI)
[2017-06-19] MEDS: PLAVIX PO SCH (09:36)
[2017-06-19] MEDS: BABY ASPIRIN PO SCH (09:36)
[2017-06-19] MEDS: ZESTRIL PO SCH (09:36)
[2017-06-19 10:06] LABS: Hematocrit 37.9 % (30.3-42.9); Hemoglobin 12.6 gm/dl (10.1-14.3)
[2017-06-19 10:19] LABS: BUN/Creatinine Ratio 12; Blood Urea Nitrogen 11 mg/dL (7-17); Calcium 8.7 mg/dL (8.4-10.2); Hemolysis Index 5
[2017-06-19] MEDS: PROTONIX 80 MG in NACL 0.9% 100 ML IV SCH (13:37)
[2017-06-19] MEDS: DUONEB *Not for PRN Use IH SCH ×2 (13:52→19:45)
--- NOTE | 2017-06-19 14:01 | Cardiac Catherization Report ---
CARDIAC CATHETERIZATION AND CORONARY ANGIOPLASTY REPORT REASON FOR PROCEDURE: The patient is a 51-year-old woman, who presented with chest pain and syncope, ECG in the Emergency Room was consistent with an acute anterolateral ST elevation myocardial infarction. Emergency cardiac catheterization protocol was activated. Due to the patient's clinical instability in the Emergency Room, requiring emergency endotracheal intubation, and hypotension requiring pressor support, as well as a period of CPR, there was a delay in eventually bringing the patient to the cardiac catheterization laboratory. DESCRIPTION OF PROCEDURE: The patient was prepped and draped under emergency protocol. On arrival to the cardiac catheterization lab, the patient was on the vent, unresponsive, on pressor agent with blood pressure 95 to 100 systolic. The right femoral cath site was prepped and draped, and using the Seldinger technique, 4-Romansh sheath was inserted into right femoral artery. Selective left and right coronary angiography was performed using #4 right and left Ashwini catheters. The angiograms were reviewed. The left main coronary artery was short, free of significant disease. The left anterior descending artery was completely occluded in its proximal segment. This was infarct related lesion, which was acute occlusion of a large LAD system. The circumflex artery and its obtuse marginal branches were angiographically normal. The right coronary artery was dominant and ____ angiographically normal. CORONARY ANGIOPLASTY: We performed ad hoc primary angioplasty of the LAD. We selected a #3 XB guiding catheter and advanced to the left coronary ostium. A 0.014 inch [employer] 50 guidewire was then introduced into the LAD, successfully penetrating the acutely occluded vessel. Following wire placement, predilatation balloon angioplasty was performed using a 3.0 mm balloon catheter. This revealed a large LAD system with a severe residual thrombotic lesion. We then deployed a 4.0 x 22 mm bare metal stent, covering the entire lesional segment, and inflated the stent to optimal pressures. Following stenting, there was an excellent angiographic result, 0 residual stenosis and ISIDORO 3 flow restored down the LAD. The catheter and the wires were removed, sheath removed, and hemostasis achieved using an Angio-Seal device. The patient was returned to the postprocedure unit in stable condition. There were no complications. CONCLUSION: 1. Acute anterolateral wall ST elevation myocardial infarction. 2. Emergency cardiac catheterization. 3. 100% occlusion of the proximal LAD is the infarct-related lesion. 4. Successful angioplasty and stenting of the LAD, deployment of a 4.0 x 22 bare-metal stent, excellent angiographic result and alevism of ISIDORO 3 flow. The patient will be admitted to the CCU for post-ND and post-cardiac arrest supportive care. Prognosis is guarded. JOB# [id number] ARELY/NTS
[2017-06-19] MEDS: HEPARIN SUB-Q SCH ×2 (14:33→22:26)
[2017-06-19 15:28] LABS: Hematocrit 40.3 % (30.3-42.9); Hemoglobin 13.2 gm/dl (10.1-14.3)
[2017-06-19 21:14] LABS: Hemoglobin 11.7 gm/dl (10.1-14.3)
[2017-06-19] MEDS: PRAVACHOL PO SCH (22:24)
[2017-06-20] MEDS: PROTONIX 80 MG in NACL 0.9% 100 ML IV SCH (01:03)
[2017-06-20 02:11] LABS: Hematocrit 35.5 % (30.3-42.9)
[2017-06-20] MEDS: LOPRESSOR PO SCH (05:10)
[2017-06-20 05:25] LABS: Hematocrit 34.3 % (30.3-42.9); Hemoglobin 11.7 gm/dl (10.1-14.3)
[2017-06-20 05:28] LABS: BUN/Creatinine Ratio 15; Blood Urea Nitrogen 12 mg/dL (7-17); Calcium 8.7 mg/dL (8.4-10.2); Hemolysis Index 24
[2017-06-20] MEDS: HEPARIN SUB-Q SCH ×2 (05:55→21:30)
[2017-06-20] MEDS: DUONEB *Not for PRN Use IH SCH ×3 (08:40→19:32)
--- NOTE | 2017-06-20 09:24 | Progress Note ---
Assessment and Plan Assessment and plan: STEMI s/p cardiac cath, PCI with bare metal stent. She is on Aspirin, Plavix. Was on Aggrastat but discontinued due to oral bleeding Cardiac arrest due to ventricular fibrillation, STEMI. s/p defibrillated Acute respiratory failure. Was Intubated, on ventilator, extubated yesterday Cocaine abuse. I counseled her on importance of quitting cocaine. She states this was her very first time. Bright red blood from mouth, resolved. H/H stable. Discontinue Protonix drip, start protonix iv 40mg daily Stable to transfer to floor. Full code status. The high probability of a clinically significant, sudden or life threatening deterioration of the [3] system(s) required my full and direct attention, intervention and personal management. The aggregate critical care time was [32] minutes. This time is in addition to time spent performing reported procedures but includes the following: [x] Data Review and interpretation [x] Patient assessment and monitoring of vital signs [x] Documentation [x] Medication orders and management History Interval history: Patient with vfib arrest, STEMI, was intubated, now extubated. Doing well, No chest pain Hospitalist Physical - Physical exam Narrative exam: Gen appearance: Not in acute distress, lying in bed, HEENT:Normocephalic, atraumatic Neck:supple, no JVD Lungs: Clear to auscultation bilaterally, no rhonchi, no wheeze Heart: S1 and S2 regular, no murmurs, rubs or gallop Abdomen: soft, non tender, non distended, normal bowel sounds Ext: No edema, no clubbing, no cyanosis. Neuro: AAO x 3, moves all ext, no focal signs - Constitutional Vitals: Temp Pulse Resp BP Pulse Ox 99.1 F 78 18 127/100 100 06/20/17 04:00 06/20/17 08:40 06/20/17 08:40 06/20/17 06:20 06/20/17 08:40 General appearance: Present: disheveled Results - Labs CBC & Chem 7: 06/20/17 04:43 06/20/17 04:43 Labs: Laboratory Last Values WBC 11.6 K/mm3 (4.5-11.0) H 06/19/17 03:48 RBC 4.19 M/mm3 (3.65-5.03) 06/19/17 03:48 Hgb 11.7 gm/dl (10.1-14.3) 06/20/17 04:43 Hct 34.3 % (30.3-42.9) 06/20/17 04:43 MCV 94 fl (79-97) 06/19/17 03:48 MCH 30 pg (28-32) 06/19/17 03:48 MCHC 32 % (30-34) 06/19/17 03:48 RDW 14.4 % (13.2-15.2) 06/19/17 03:48 Plt Count 181 K/mm3 (140-440) 06/20/17 04:43 Lymph % (Auto) 30.6 % (13.4-35.0) 06/18/17 18:25 [place] % (Auto) 6.6 % (0.0-7.3) 06/18/17 18:25 Eos % (Auto) 0.3 % (0.0-4.3) 06/18/17 18:25 Baso % (Auto) 0.5 % (0.0-1.8) 06/18/17 18:25 Lymph # 4.3 K/mm3 (1.2-5.4) 06/18/17 18:25 [place] # 0.9 K/mm3 (0.0-0.8) H 06/18/17 18:25 Eos # 0.0 K/mm3 (0.0-0.4) 06/18/17 18:25 Baso # 0.1 K/mm3 (0.0-0.1) 06/18/17 18:25 Add Manual Diff Complete 06/19/17 03:48 Total Counted 100 06/19/17 03:48 Seg Neutrophils % [place] Captain 06/19/17 03:48 Seg Neuts % (Manual) 94.0 % (40.0-70.0) H 06/19/17 03:48 Band Neutrophils % 0 % 06/19/17 03:48 Lymphocytes % (Manual) 4.0 % (13.4-35.0) L 06/19/17 03:48 Reactive Lymphs % (Man) 0 % 06/19/17 03:48 Monocytes % (Manual) 2.0 % (0.0-7.3) 06/19/17 03:48 Eosinophils % (Manual) 0 % (0.0-4.3) 06/19/17 03:48 Basophils % (Manual) 0 % (0.0-1.8) 06/19/17 03:48 Metamyelocytes % 0 % 06/19/17 03:48 Myelocytes % 0 % 06/19/17 03:48 Promyelocytes % 0 % 06/19/17 03:48 Blast Cells % 0 % 06/19/17 03:48 Nucleated RBC % Not Reportable 06/19/17 03:48 Seg Neutrophils # 8.8 K/mm3 (1.8-7.7) H 06/18/17 18:25 Seg Neutrophils # Man 10.9 K/mm3 (1.8-7.7) H 06/19/17 03:48 Band Neutrophils # 0.0 K/mm3 06/19/17 03:48 Lymphocytes # (Manual) 0.5 K/mm3 (1.2-5.4) L 06/19/17 03:48 Abs React Lymphs (Man) 0.0 K/mm3 06/19/17 03:48 Monocytes # (Manual) 0.2 K/mm3 (0.0-0.8) 06/19/17 03:48 Eosinophils # (Manual) 0.0 K/mm3 (0.0-0.4) 06/19/17 03:48 Basophils # (Manual) 0.0 K/mm3 (0.0-0.1) 06/19/17 03:48 Metamyelocytes # 0.0 K/mm3 06/19/17 03:48 Myelocytes # 0.0 K/mm3 06/19/17 03:48 Promyelocytes # 0.0 K/mm3 06/19/17 03:48 Blast Cells # 0.0 K/mm3 06/19/17 03:48 WBC Morphology Not Reportable 06/19/17 03:48 Hypersegmented Neuts Not Reportable 06/19/17 03:48 Hyposegmented Neuts Not Reportable 06/19/17 03:48 Hypogranular Neuts Not Reportable 06/19/17 03:48 Smudge Cells Not Reportable 06/19/17 03:48 Toxic Granulation Not Reportable 06/19/17 03:48 Toxic Vacuolation Not Reportable 06/19/17 03:48 Dohle Bodies Not Reportable 06/19/17 03:48 Pelger-Huet Anomaly Not Reportable 06/19/17 03:48 Allan Rods Not Reportable 06/19/17 03:48 Platelet Estimate Consistent w auto 06/19/17 03:48 Clumped Platelets Not Reportable 06/19/17 03:48 Plt Clumps, EDTA Not Reportable 06/19/17 03:48 Large Platelets Not Reportable 06/19/17 03:48 Giant Platelets Not Reportable 06/19/17 03:48 Platelet Satelliting Not Reportable 06/19/17 03:48 Plt Morphology Comment Not Reportable 06/19/17 03:48 RBC Morphology Not Reportable 06/19/17 03:48 Dimorphic RBCs Not Reportable 06/19/17 03:48 Polychromasia Not Reportable 06/19/17 03:48 Hypochromasia Not Reportable 06/19/17 03:48 Poikilocytosis Not Reportable 06/19/17 03:48 Anisocytosis 1+ 06/19/17 03:48 Microcytosis Not Reportable 06/19/17 03:48 Macrocytosis Not Reportable 06/19/17 03:48 Spherocytes Not Reportable 06/19/17 03:48 Pappenheimer Bodies Not Reportable 06/19/17 03:48 Sickle Cells Not Reportable 06/19/17 03:48 Target Cells Not Reportable 06/19/17 03:48 Tear Drop Cells Not Reportable 06/19/17 03:48 Ovalocytes Not Reportable 06/19/17 03:48 Helmet Cells Not Reportable 06/19/17 03:48 [place] Bodies Not Reportable 06/19/17 03:48 [place] Rings Not Reportable 06/19/17 03:48 Stephanie Cells Not Reportable 06/19/17 03:48 Bite Cells Not Reportable 06/19/17 03:48 Crenated Cell Not Reportable 06/19/17 03:48 Elliptocytes Not Reportable 06/19/17 03:48 Acanthocytes (Spur) Not Reportable 06/19/17 03:48 Rouleaux Not Reportable 06/19/17 03:48 Hemoglobin C Crystals Not Reportable 06/19/17 03:48 Schistocytes Not Reportable 06/19/17 03:48 Malaria parasites Not Reportable 06/19/17 03:48 Hiren Bodies Not Reportable 06/19/17 03:48 Hem Pathologist Commnt No 06/19/17 03:48 PT 13.5 Sec. (12.2-14.9) 06/18/17 18:25 INR 0.98 (0.87-1.13) 06/18/17 18:25 APTT 29.9 Sec. (24.2-36.6) 06/18/17 18:25 Activated Clotting Time 296 (74-137) H 06/18/17 20:15 POC ABG pH 7.356 (7.35-7.45) 06/19/17 05:34 POC ABG pCO2 42.7 (35-45) 06/19/17 05:34 POC ABG pO2 229 (80-105) H 06/19/17 05:34 POC ABG HCO3 23.9 06/19/17 05:34 POC ABG Total CO2 25 06/19/17 05:34 POC ABG O2 Sat 100 06/19/17 05:34 POC ABG Base Excess -2 06/19/17 05:34 FiO2 60 % 06/19/17 05:34 Sodium 140 mmol/L (137-145) 06/20/17 04:43 Potassium 4.5 mmol/L (3.6-5.0) 06/20/17 04:43 Chloride 103.0 mmol/L (98-107) 06/20/17 04:43 Carbon Dioxide 24 mmol/L (22-30) 06/20/17 04:43 Anion Gap 18 mmol/L 06/20/17 04:43 BUN 12 mg/dL (7-17) 06/20/17 04:43 Creatinine 0.8 mg/dL (0.7-1.2) 06/20/17 04:43 Estimated GFR > 60 ml/min 06/20/17 04:43 BUN/Creatinine Ratio 15 % 06/20/17 04:43 Glucose 101 mg/dL (65-100) H 06/20/17 04:43 POC Glucose 125 (70-105) H 06/19/17 23:37 Hemoglobin A1c 5.3 % (4-6) 06/18/17 20:25 Calcium 8.7 mg/dL (8.4-10.2) 06/20/17 04:43 Phosphorus 3.40 mg/dL (2.5-4.5) 06/19/17 09:46 Magnesium 2.10 mg/dL (1.7-2.3) 06/19/17 09:46 Total Bilirubin 0.40 mg/dL (0.1-1.2) 06/19/17 03:48 AST 84 units/L (5-40) H 06/19/17 03:48 ALT 33 units/L (7-56) 06/19/17 03:48 Alkaline Phosphatase 76 units/L (35-129) 06/19/17 03:48 Total Creatine Kinase 751 units/L (30-135) H 06/19/17 03:48 CK-MB (CK-2) 86.8 ng/mL (0.0-4.0) H 06/19/17 03:48 CK-MB (CK-2) Rel Index 11.5 (0-4) H 06/19/17 03:48 Troponin T 1.820 ng/mL (0.00-0.029) H* D 06/19/17 03:48 Total Protein 6.8 g/dL (6.3-8.2) 06/19/17 03:48 Albumin 3.8 g/dL (3.9-5) L 06/19/17 03:48 Albumin/Globulin Ratio 1.3 % 06/19/17 03:48 Triglycerides 67 mg/dL (2-149) 06/18/17 21:19 Cholesterol 122 mg/dL (50-199) 06/18/17 21:19 LDL Cholesterol Direct 57 mg/dL (50-130) 06/18/17 21:19 HDL Cholesterol 51 mg/dL (40-59) 06/18/17 21:19 Cholesterol/HDL Ratio 2.39 % 06/18/17 21:19 Urine Opiates Screen Presumptive negative 06/18/17 18:41 Urine Methadone Screen Presumptive negative 06/18/17 18:41 Ur Barbiturates Screen Presumptive negative 06/18/17 18:41 Ur Phencyclidine Scrn Presumptive negative 06/18/17 18:41 Ur Amphetamines Screen Presumptive negative 06/18/17 18:41 U Benzodiazepines Scrn Presumptive negative 06/18/17 18:41 Urine Cocaine Screen Presumptive positive 06/18/17 18:41 U Marijuana (THC) Screen Presumptive positive 06/18/17 18:41 Drugs of Abuse Note Disclamer 06/18/17 18:41 Blood Type O POSITIVE 06/19/17 09:48 Antibody Screen Negative 06/19/17 09:48
[2017-06-20] MEDS: ZESTRIL PO SCH (09:35)
[2017-06-20] MEDS: BABY ASPIRIN PO SCH (09:36)
[2017-06-20] MEDS: PLAVIX PO SCH (09:36)
[2017-06-20] MEDS: SODIUM CHLORIDE FLUSH SYRINGE 10 ML IV SCH ×2 (09:39→21:32)
[2017-06-20] MEDS ORDERED: PROTONIX IV SCH (10:00)
--- NOTE | 2017-06-20 12:03 | Progress Note ---
Assessment and Plan - Patient Problems (1) STEMI (ST elevation myocardial infarction) Current Visit: Yes Status: Acute Qualifiers: Involved coronary artery: LAD coronary artery Qualified Code(s): I21.02 - ST elevation (STEMI) myocardial infarction involving left anterior descending coronary artery Plan to address problem: Status post successful primary angioplasty and stenting of the LAD for acute anterolateral wall ST elevation myocardial infarction. Echocardiogram shows a severe cardiomyopathy with ejection fraction 20-25%. Patient is stable for transfer to telemetry, continue medical therapy including dual antiplatelet therapy. We will increase beta maggy therapy. Subjective Date of service: 06/20/17 Interval history: The patient looks and feels better, comfortable in no acute distress. There is no chest pain and no shortness of breath. Heart rate is 92, sinus rhythm. Blood pressure is 119 systolic. Objective Vital Signs Temp Pulse Pulse Pulse Resp Resp BP 06/20/17 11:30 91 H 14 136/96 06/20/17 11:21 70 14 133/90 06/20/17 11:11 70 14 128/85 06/20/17 11:00 72 16 128/85 06/20/17 10:51 74 16 119/83 06/20/17 10:41 78 16 125/92 06/20/17 10:30 74 15 125/92 06/20/17 10:21 85 16 145/107 06/20/17 10:11 81 18 141/94 06/20/17 10:00 70 70 17 141/94 06/20/17 09:51 74 18 128/73 06/20/17 09:41 76 14 120/83 06/20/17 09:35 66 120/83 06/20/17 09:30 73 19 120/83 06/20/17 09:21 78 19 119/82 06/20/17 09:10 72 20 128/73 06/20/17 09:00 76 16 128/73 06/20/17 08:50 100 H 80 12 18 119/82 06/20/17 08:40 71 78 17 18 127/84 06/20/17 08:30 73 17 127/84 06/20/17 08:20 87 17 122/96 06/20/17 08:10 83 12 144/95 06/20/17 08:00 98.2 F 80 80 17 144/95 06/20/17 07:50 94 H 19 128/98 18 07:40 100 H 17 139/95 14/18 07:30 106 H 18 131/91 1418 07:20 81 18 131/91 18 07:10 92 H 13 128/98 18 07:00 101 H 14 128/98 18 06:50 71 18 130/93 14/18 06:40 71 15 130/93 14/18 06:30 73 16 130/93 14/18 06:20 74 15 127/100 18 06:10 74 23 136/94 18 06:00 76 21 136/94 18 05:50 82 15 125/85 06/20/17 05:40 77 16 136/98 18 05:30 77 17 136/98 18 05:20 72 15 139/102 18 05:10 79 16 142/97 06/20/17 05:00 69 14 142/97 06/20/17 04:50 84 12 124/83 18 04:40 101 H 12 128/91 18 04:30 75 15 128/91 18 04:20 71 16 120/89 18 04:10 72 21 124/86 18 04:00 99.1 F 89 10 L 124/86 18 03:50 79 18 118/87 1418 03:40 75 18 118/86 1418 03:30 75 17 118/86 18 03:20 74 17 124/86 18 03:10 76 16 123/89 18 03:00 78 18 131/89 18 02:50 72 22 123/89 18 02:40 77 22 111/74 1418 02:30 82 20 122/88 1418 02:20 69 18 111/74 14/18 02:10 72 18 120/75 14/18 02:00 67 18 120/79 1418 01:50 70 18 120/75 14/18 01:40 78 17 136/98 18 01:30 87 15 127/89 06/20/17 01:20 76 16 136/98 06/20/17 01:10 77 18 120/79 06/20/17 01:00 80 19 127/88 06/20/17 00:50 79 16 120/79 06/20/17 00:40 77 17 136/95 06/20/17 00:30 82 17 127/93 06/20/17 00:20 83 22 136/95 06/20/17 00:10 77 18 155/107 06/20/17 00:00 99.2 F 100 H 19 155/107 06/19/17 23:50 84 20 155/107 06/19/17 23:40 87 18 157/110 06/19/17 23:30 77 18 157/110 06/19/17 23:20 88 18 140/92 06/19/17 23:10 83 19 131/96 06/19/17 23:04 84 22 131/96 06/19/17 23:00 77 17 131/96 06/19/17 22:50 71 19 140/96 06/19/17 22:40 100 H 17 133/88 06/19/17 22:30 74 17 133/88 06/19/17 22:25 82 120/65 06/19/17 22:20 70 15 120/85 06/19/17 22:10 84 19 115/77 06/19/17 22:00 81 20 119/79 06/19/17 21:50 82 19 115/79 06/19/17 21:40 80 19 115/77 06/19/17 21:30 80 19 119/79 06/19/17 21:20 103 H 17 119/79 06/19/17 21:10 100 H 16 133/97 06/19/17 21:00 90 16 133/97 06/19/17 20:50 101 H 19 132/91 06/19/17 20:40 92 H 12 137/101 06/19/17 20:30 85 14 137/101 06/19/17 20:20 96 H 19 124/88 06/19/17 20:10 98 H 21 147/108 06/19/17 20:00 99.2 F 89 19 147/108 06/19/17 19:58 85 100 H 06/19/17 19:50 72 24 142/101 06/19/17 19:46 06/19/17 19:45 87 99 H 06/19/17 19:40 67 18 125/84 06/19/17 19:30 95 H 23 158/104 06/19/17 19:20 81 19 158/104 06/19/17 19:10 81 22 159/103 06/19/17 19:00 92 H 21 159/103 06/19/17 18:50 80 21 143/106 06/19/17 18:40 82 21 146/112 06/19/17 18:30 93 H 20 146/112 06/19/17 18:20 77 23 145/105 06/19/17 18:10 94 H 20 146/99 06/19/17 18:00 83 16 146/99 06/19/17 17:50 85 19 156/114 06/19/17 17:40 82 21 143/104 06/19/17 17:30 89 24 143/104 06/19/17 17:20 85 24 145/104 06/19/17 17:10 76 24 141/101 06/19/17 17:00 80 22 141/101 06/19/17 16:50 84 21 136/93 06/19/17 16:40 75 20 129/95 06/19/17 16:30 89 17 129/95 06/19/17 16:20 97 H 27 H 122/77 06/19/17 16:10 89 18 143/99 06/19/17 16:00 98.4 F 106 H 21 146/109 06/19/17 15:50 78 15 143/99 06/19/17 15:40 95 H 16 137/95 06/19/17 15:30 89 17 137/95 06/19/17 15:20 75 21 122/87 06/19/17 15:10 76 21 133/98 06/19/17 15:00 79 22 133/98 06/19/17 14:50 73 19 144/99 06/19/17 14:40 81 21 06/19/17 14:30 78 21 142/102 06/19/17 14:20 76 21 142/102 06/19/17 14:10 79 92 H 21 16 132/96 06/19/17 14:00 74 16 132/96 06/19/17 13:52 87 15 06/19/17 13:50 88 14 142/103 06/19/17 13:40 94 H 18 132/98 06/19/17 13:36 74 132/98 06/19/17 13:30 94 H 25 H 132/98 06/19/17 13:20 71 22 131/95 06/19/17 13:10 85 18 138/101 06/19/17 13:00 138/101 06/19/17 12:50 130/99 06/19/17 12:40 129/98 06/19/17 12:30 124/95 06/19/17 12:20 129/98 06/19/17 12:10 141/105 06/19/17 12:05 Pulse Ox 06/20/17 11:30 06/20/17 11:21 100 06/20/17 11:11 100 06/20/17 11:00 100 06/20/17 10:51 100 06/20/17 10:41 99 06/20/17 10:30 100 06/20/17 10:21 100 06/20/17 10:11 99 06/20/17 10:00 100 06/20/17 09:51 99 06/20/17 09:41 99 06/20/17 09:35 06/20/17 09:30 06/20/17 09:21 98 06/20/17 09:10 99 06/20/17 09:00 96 06/20/17 08:50 100 06/20/17 08:40 100 06/20/17 08:30 100 06/20/17 08:20 100 06/20/17 08:10 100 06/20/17 08:00 96 06/20/17 07:50 100 06/20/17 07:40 100 06/20/17 07:30 96 06/20/17 07:20 100 06/20/17 07:10 100 06/20/17 07:00 100 06/20/17 06:50 100 06/20/17 06:40 100 06/20/17 06:30 06/20/17 06:20 100 06/20/17 06:10 100 06/20/17 06:00 100 06/20/17 05:50 100 06/20/17 05:40 100 06/20/17 05:30 100 06/20/17 05:20 100 06/20/17 05:10 100 06/20/17 05:00 100 06/20/17 04:50 100 06/20/17 04:40 99 06/20/17 04:30 06/20/17 04:20 100 06/20/17 04:10 99 06/20/17 04:00 100 06/20/17 03:50 100 06/20/17 03:40 100 06/20/17 03:30 06/20/17 03:20 100 06/20/17 03:10 100 06/20/17 03:00 100 06/20/17 02:50 99 06/20/17 02:40 100 06/20/17 02:30 100 06/20/17 02:20 99 06/20/17 02:10 99 06/20/17 02:00 100 06/20/17 01:50 99 06/20/17 01:40 99 06/20/17 01:30 100 06/20/17 01:20 100 06/20/17 01:10 100 06/20/17 01:00 06/20/17 00:50 100 06/20/17 00:40 100 06/20/17 00:30 99 06/20/17 00:20 100 06/20/17 00:10 100 06/20/17 00:00 99 06/19/17 23:50 100 06/19/17 23:40 100 06/19/17 23:30 100 06/19/17 23:20 100 06/19/17 23:10 100 06/19/17 23:04 100 06/19/17 23:00 06/19/17 22:50 100 06/19/17 22:40 99 06/19/17 22:30 100 06/19/17 22:25 06/19/17 22:20 99 06/19/17 22:10 100 06/19/17 22:00 99 06/19/17 21:50 100 06/19/17 21:40 100 06/19/17 21:30 100 06/19/17 21:20 100 06/19/17 21:10 99 06/19/17 21:00 99 06/19/17 20:50 97 06/19/17 20:40 100 06/19/17 20:30 98 06/19/17 20:20 99 06/19/17 20:10 99 06/19/17 20:00 99 06/19/17 19:58 06/19/17 19:50 100 06/19/17 19:46 99 06/19/17 19:45 06/19/17 19:40 100 06/19/17 19:30 99 06/19/17 19:20 99 06/19/17 19:10 99 06/19/17 19:00 99 06/19/17 18:50 100 06/19/17 18:40 100 06/19/17 18:30 99 06/19/17 18:20 100 06/19/17 18:10 99 06/19/17 18:00 100 06/19/17 17:50 100 06/19/17 17:40 100 06/19/17 17:30 100 06/19/17 17:20 100 06/19/17 17:10 100 06/19/17 17:00 100 06/19/17 16:50 100 06/19/17 16:40 100 06/19/17 16:30 100 06/19/17 16:20 100 06/19/17 16:10 99 06/19/17 16:00 98 06/19/17 15:50 100 06/19/17 15:40 100 06/19/17 15:30 99 06/19/17 15:20 99 06/19/17 15:10 100 06/19/17 15:00 100 06/19/17 14:50 100 06/19/17 14:40 100 06/19/17 14:30 100 06/19/17 14:20 100 06/19/17 14:10 100 06/19/17 14:00 100 06/19/17 13:52 06/19/17 13:50 100 06/19/17 13:40 100 06/19/17 13:36 06/19/17 13:30 100 06/19/17 13:20 100 06/19/17 13:10 98 06/19/17 13:00 96 06/19/17 12:50 98 06/19/17 12:40 96 06/19/17 12:30 98 06/19/17 12:20 96 06/19/17 12:10 96 06/19/17 12:05 97 - Physical Examination General: No Apparent Distress HEENT: Positive: PERRL Neck: Positive: neck supple Cardiac: Positive: Reg Rate and Rhythm Lungs: Positive: Decreased Breath Sounds Neuro: Positive: Grossly Intact, Other (Unresponsive, vent) Abdomen: Positive: Soft Skin: Positive: Clear Extremities: Absent: edema - Labs and Meds CBC 06/19/17 06/19/17 06/20/17 Range/Units 14:57 20:54 01:32 Hgb 13.2 11.7 12.0 (10.1-14.3) gm/dl Hct 40.3 35.0 35.5 (30.3-42.9) % Plt Count (140-440) K/mm3 06/20/17 Range/Units 04:43 Hgb 11.7 (10.1-14.3) gm/dl Hct 34.3 (30.3-42.9) % Plt Count 181 (140-440) K/mm3 Comprehensive Metabolic Panel 06/20/17 Range/Units 04:43 Sodium 140 (137-145) mmol/L Potassium 4.5 (3.6-5.0) mmol/L Chloride 103.0 (98-107) mmol/L Carbon Dioxide 24 (22-30) mmol/L BUN 12 (7-17) mg/dL Creatinine 0.8 (0.7-1.2) mg/dL Glucose 101 H (65-100) mg/dL Calcium 8.7 (8.4-10.2) mg/dL - Imaging and Cardiology EKG: report reviewed (STEMI)
[2017-06-20] MEDS ORDERED: LOPRESSOR PO SCH (14:00)
[2017-06-20] MEDS: PRAVACHOL PO SCH (21:29)
[2017-06-21] MEDS: DUONEB *Not for PRN Use IH SCH ×2 (07:28→16:05)
[2017-06-21 10:24] VITALS: BP 121/80
[2017-06-21] MEDS: PLAVIX PO SCH (10:25)
[2017-06-21] MEDS: BABY ASPIRIN PO SCH (10:25)
[2017-06-21] MEDS: ZESTRIL PO SCH (10:26)
[2017-06-21] MEDS: SODIUM CHLORIDE FLUSH SYRINGE 10 ML IV SCH (10:26)
[2017-06-21] MEDS ORDERED: PROTONIX PO SCH (11:00)
--- NOTE | 2017-06-21 11:34 | Discharge Summary ---
Providers - Providers Date of Admission: 06/18/17 20:10 Date of discharge: 06/21/17 Attending physician: BELIA MACHUCA 06/18/17 Consult to Cardiac Rehabilitation [CONS] Routine Reason For Exam: post pci 06/18/17 20:10 Consult to Physician [CONS] Routine Comment: Consulting Provider: NEVA BROCK Physician Instructions: Reason For Exam: cardiac arrest non-STEMI 06/18/17 20:55 Consult to Dietitian/Nutrition [CONS] Routine Physician Instructions: Assess nutrtn needs, initiate, modify, manage TF Reason For Exam: Reason for Consult: Write/Manage Tube Feeding Reason for Consult: Write/Manage Tube Feeding Primary care physician: INSURANCE COLLECTOR Hospitalization Condition: Fair Hospital course: Patient is 51 yo brought to ED after found unresponsive at hotel. She was using cocaine. She complained of chest pain. She had vfib arrest, was defibrillated, intubated. EKG showed STEMI. She was taken to [facility], cardiac cath revealed LAD lesion. She had angioplasty, stent placed in LAD, admitted to ICU. She improved, was extubated, transferred to [facility] and discharged home on 06/21/17. She was discharged on Aspirin, Plavix, Metoprolol, Statin, Lisinopril. Total time spent on discharge , 33 mins Disposition: DC-01 TO HOME OR SELFCARE - Discharge Diagnoses (1) Cocaine abuse Status: Acute (2) Cocaine abuse Status: Acute (3) Ventricular fibrillation Status: Acute (4) Acute respiratory failure Status: Acute Qualifiers: Respiratory failure complication: hypoxia Qualified Code(s): J96.01 - Acute respiratory failure with hypoxia (5) Cardiac arrest Status: Acute (6) STEMI (ST elevation myocardial infarction) Status: Acute Qualifiers: Involved coronary artery: LAD coronary artery Qualified Code(s): I21.02 - ST elevation (STEMI) myocardial infarction involving left anterior descending coronary artery (7) CAD (coronary artery disease) Status: Acute Core Measure Documentation - Palliative Care Palliative Care/ Comfort Measures: Not Applicable - Core Measures Any of the following diagnoses?: acute PR - Acute PR Discharge Requirements Aspirin at discharge: Yes MARÍA ELENA/ARB for LVSD if EF <40%: Yes Beta maggy at discharge: Yes Statin for LDL = or >100 mg/dl on DC: Yes Exam - Constitutional Vitals: Temp Pulse Resp BP Pulse Ox 98.5 F 80 18 121/80 98 06/21/17 07:26 06/21/17 10:26 06/21/17 07:26 06/21/17 10:26 06/21/17 07:26 Plan Activity: other (No strenous activity until cleared by Cardiology) Diet: low fat, low cholesterol, low salt Additional Instructions: 1.Follow up with PCP or [facility] in 1 week. 2.Follow up with Dr. Brock in 1 week Follow up with: NEVA BROCK MD [Staff Physician] - 7 Days BELIA BULLARD MD [Staff Physician] - 7 Days PRIMARY CARE, [Primary Care Provider] - 7 Days Prescriptions: Aspirin EC [Aspirin Enteric Coated TAB] 81 mg PO QDAY #30 tablet. Clopidogrel [Plavix] 75 mg PO QDAY #30 tablet Famotidine [Pepcid] 20 mg PO BID #30 tablet Lisinopril [Zestril TAB] 2.5 mg PO QDAY #30 tablet Metoprolol [Lopressor TAB] 50 mg PO Q8H #90 tablet Pravastatin [Pravachol] 40 mg PO QHS #30 tablet
--- NOTE | 2017-06-21 13:19 | Progress Note ---
Assessment and Plan - Patient Problems (1) STEMI (ST elevation myocardial infarction) Current Visit: Yes Status: Acute Qualifiers: Involved coronary artery: LAD coronary artery Qualified Code(s): I21.02 - ST elevation (STEMI) myocardial infarction involving left anterior descending coronary artery Plan to address problem: Acute anterolateral lateral ST elevation myocardial infarction, treated with primary angioplasty and stenting of the LAD with a bare metal stent. There is a residual, dilated ischemic cardiomyopathy, with ejection fraction 20-25%. The patient is stable for cardiac discharge on aspirin and Plavix, afterload reducing therapy, beta maggy and statin. Cardiac follow-up in 5-7 days post discharge. Subjective Date of service: 06/21/17 Interval history: Patient looks and feels well, no cardiac complaints, following primary angioplasty and stenting of the LAD for an acute anterolateral ST elevation myocardial infarction. Objective Vital Signs Temp Pulse Pulse Resp Resp BP Pulse Ox 06/21/17 10:26 80 121/80 06/21/17 07:26 98.5 F 75 18 121/80 98 06/21/17 04:32 99.0 F 84 20 115/81 100 06/20/17 23:28 99.4 F 86 20 116/81 99 06/20/17 20:00 69 06/20/17 19:42 89 20 06/20/17 19:32 98.6 F 86 78 20 18 114/73 100 06/20/17 15:39 89 138/95 100 06/20/17 15:38 98.3 F 89 18 138/95 100 06/20/17 13:57 74 18 06/20/17 13:47 71 18 100 - Physical Examination General: Appears Well, No Apparent Distress HEENT: Positive: PERRL Neck: Positive: neck supple Cardiac: Positive: Reg Rate and Rhythm Lungs: Positive: Decreased Breath Sounds Neuro: Positive: Grossly Intact, Other (Unresponsive, vent) Abdomen: Positive: Soft Skin: Positive: Clear Extremities: Absent: edema - Imaging and Cardiology EKG: report reviewed (STEMI)
== END 2017-06-21 14:25 | disposition home or self-care (01) | DRG 248 ==
LOC: EDBD → ED 18:10 → CC1 20:10 → 4A 06-20 12:48
PROVIDERS: ADMIT Internal Medicine; ATTEND Internal Medicine
PROC: 02703DZ Dilation of Coronary Artery, One Artery with Intraluminal Device, Percutaneous Approach (ICD-10-PCS; principal; 2017-06-18)
PROC: 5A1935Z Respiratory Ventilation, Less than 24 Consecutive Hours (ICD-10-PCS; 2017-06-18)
PROC: 0BH17EZ Insertion of Endotracheal Airway into Trachea, Via Natural or Artificial Opening (ICD-10-PCS; 2017-06-18)
PROC: 4A023N7 Measurement of Cardiac Sampling and Pressure, Left Heart, Percutaneous Approach (ICD-10-PCS; 2017-06-18)
PROC: B2111ZZ Fluoroscopy of Multiple Coronary Arteries using Low Osmolar Contrast (ICD-10-PCS; 2017-06-18)
PROC: 4A033R1 Measurement of Arterial Saturation, Peripheral, Percutaneous Approach (ICD-10-PCS; 2017-06-19)
DX: I21.09 ST elevation (STEMI) myocardial infarction involving other coronary artery of anterior wall (principal); I46.9 Cardiac arrest, cause unspecified; I49.01 Ventricular fibrillation; J96.00 Acute respiratory failure, unspecified whether with hypoxia or hypercapnia; J69.0 Pneumonitis due to inhalation of food and vomit; F14.20 Cocaine dependence, uncomplicated; I42.0 Dilated cardiomyopathy; R73.9 Hyperglycemia, unspecified; I25.5 Ischemic cardiomyopathy; Z71.51 Drug abuse counseling and surveillance of drug abuser
CPT/HCPCS: 36415; 36600; 71045; 74018; 80048; 80053; 80061; 80307; 82550; 82553; 82803; 82962; 83036; 83735; 84100; 84484; 85007; 85014; 85018; 85025; 85049; 85347; 85610; 85730; 86850; 86900; 86901; 87070; 87205; 92941; 93005; 93010; 93306; 93458; 94002; 94003; 94640; 94760; A9270-GY; C1725; C1760; C1769; C1876; C1887; C1894; C9113; J0282; J1644; J2060; J2250; J2543; J2704; J2930; J3010; J3246; J7030; J7040; J7060; Q9967

== ENCOUNTER 2017-06-22 08:01 | Inpatient (IN) | payer OTHER ==
[2017-06-22 09:25] LABS: Basophils # (Auto) 0.1 K/mm3 (0.0-0.1); Basophils % (Auto) 0.5 % (0.0-1.8); Eosinophils % (Auto) 0.1 % (0.0-4.3); Hematocrit 36.1 % (30.3-42.9); Hemoglobin 12.1 gm/dl (10.1-14.3); Lymphocytes # (Auto) 1.8 K/mm3 (1.2-5.4); Lymphocytes % (Auto) 16.9 % (13.4-35.0); Mean Corpuscular HGB Conc 33 % (30-34); Mean Corpuscular Hemoglobin 31 pg (28-32); Mean Corpuscular Volume 93 fl (79-97); Monocytes # (Auto) 0.4 K/mm3 (0.0-0.8); Monocytes % (Auto) 3.7 % (0.0-7.3); Platelet Count 197 K/mm3 (140-440); Red Blood Count 3.88 M/mm3 (3.65-5.03); Red Cell Distribution Width 13.6 % (13.2-15.2)
[2017-06-22] MEDS ORDERED: ASPIRIN ONE (09:34)
[2017-06-22] MEDS ORDERED: NITRO-BID 2% TP ONE ×2 (09:34→10:30)
[2017-06-22] MEDS ORDERED: LOPRESSOR ONE (09:34)
[2017-06-22 09:36] LABS: INR 0.91 (0.87-1.13)
[2017-06-22] MEDS ORDERED: NITROSTAT SL ONE ×2 (09:36→09:52)
[2017-06-22 09:37] LABS: Partial Thromboplastin Time 34.8 Sec. (24.2-36.6)
[2017-06-22 09:44] LABS: BUN/Creatinine Ratio 13; Blood Urea Nitrogen 12 mg/dL (7-17); Hemolysis Index 7
[2017-06-22] MEDS ORDERED: ASPIRIN PO ONE (09:52)
[2017-06-22] MEDS ORDERED: NITROSTAT SL PRN (09:53)
--- NOTE | 2017-06-22 10:30 | XRay Report ---
ROUTINE CHEST, TWO VIEWS: HISTORY: chest pain. Endotracheal tube and nasogastric tube have been removed since 06/19/17. The trachea, heart, mediastinal contour, lung guthrie and bony thorax are unremarkable. IMPRESSION: Unremarkable chest x-ray.
[2017-06-22] MEDS ORDERED: TRIDIL DRIP 50MG/250ML 50 MG/250 ML BOTTLE IV SCH (11:00)
[2017-06-22] MEDS ORDERED: HEPARIN/ 0.45% NACL-25,000 UNIT/500 ML 25,000 UNIT/500 ML BAG IV SCH (11:00)
--- NOTE | 2017-06-22 11:03 | History and Physical Report ---
History of Present Illness Date of examination: 06/22/17 Date of admission: 06/22/17 Chief complaint: Chest pain Bloody nose History of present illness: Patient is 51yo just discharged from hospital yesterday. Her primary diagnosis was STEMI with vfib arrest after cocaine use. Cardiac cath and placement of bare metal stent to LAD was done, and she was discharged yesterday on Aspirin, Plavix,statin,metoprolol. She presents today with chest pain and mild bleeding right nostril. Chest pain is 6/10, left sided, like a pressure. There was no radiation. Chest pain not worse on exertion. She also complained of mild bleeding from right nostril. She was concerned and therefore came to ED for evaluation. She states she filled prescriptions given at discharge yesterday and took her medications. She was evaluated in Emergency Department and will be admitted. Past History Past Medical History: acute DE, CAD, other (Cardiac arrest, vfib, cardioresp arrest,intubation,peptic ulcer disease) Past Surgical History: PTCA Social history: lives with family, smoking (Smokes marijuana), other (Caocaine use). denies: alcohol abuse, IV drug use Family history: cancer, diabetes Medications and Allergies Allergies Allergy/AdvReac Type Severity Reaction Status Date / Time No Known Allergies Allergy Unverified 06/21/17 11:07 Home Medications Medication Instructions Recorded Confirmed Last Taken Type Aspirin EC [Aspirin Enteric Coated 81 mg PO QDAY #30 tablet. 06/21/1706/21/17 Rx TAB] Clopidogrel [Plavix] 75 mg PO QDAY #30 tablet 06/21/17 06/22/17 06/21/17 Rx Famotidine [Pepcid] 20 mg PO BID #30 tablet 06/21/17 06/22/17 06/21/17 Rx Lisinopril [Zestril TAB] 2.5 mg PO QDAY #30 tablet 06/21/17 06/22/17 06/21/17 Rx Metoprolol [Lopressor TAB] 50 mg PO Q8H #90 tablet 06/21/17 06/22/17 06/21/17 Rx Pravastatin [Pravachol] 40 mg PO QHS #30 tablet 06/21/17 06/22/17 06/21/17 Rx Active Meds: Active Medications Heparin Sodium/Sodium Chloride (Heparin/ 0.45% Nacl-25,000 Unit/500 Ml) 25,000 unit in 500 mls @ 21.773 mls/hr IV TITRATE GISSEL; Protocol Nitroglycerin/Dextrose (Tridil Drip 50mg/250ml) 50 mg in 250 mls @ 3 mls/hr IV TITR GISSEL; Protocol Nitroglycerin (Nitrostat) 0.4 mg SL .Q5MIN PRN PRN Reason: Chest Pain Review of Systems All systems: negative (No headache, no vomiting, no bloody stools. All other systems reviewed and are negative) Exam - Physical Exam Narrative exam: Gen appearance: Not in acute distress, lying in bed, HEENT:Normocephalic, atraumatic Neck:supple, no JVD Lungs: Clear to auscultation bilaterally, no rhonchi, no wheeze Heart: S1 and S2 regular, no murmurs, rubs or gallop Abdomen: soft, non tender, non distended, normal bowel sounds Ext: No edema, no clubbing, no cyanosis. Neuro: AAO x 3, moves all ext, no focal signs - Constitutional Vitals: Temp Pulse Resp BP Pulse Ox 97.8 F 83 15 136/84 98 06/22/17 08:52 06/22/17 10:19 06/22/17 10:19 06/22/17 10:19 06/22/17 08:52 Results - Labs CBC & Chem 7: 06/22/17 09:13 06/22/17 09:13 Labs: Abnormal lab results 06/22/17 06/22/17 Range/Units 09:13 09:13 Seg Neutrophils % 78.8 H (40.0-70.0) % Seg Neutrophils # 8.4 H (1.8-7.7) K/mm3 Troponin T 1.560 H* (0.00-0.029) ng/mL Assessment and Plan Chest pain. Admit to telemetry.Resume Aspirin, Plavix, metoprolol,statins. Start Nitropaste. Started on Heparin drip. Cardiology consulted. Patient was just discharged home yesterday after STEMI, vfib arrest after cocaine use. She had cardiac cath and stent placed to LAD.She was discharged home on Aspirin,plavix,statins and states she took her meds. Coronary artery disease s/p angioplasty, bare metal stent placed to LAD few days ago. Cocaine use. Patient states she did not use any cocaine this time. Epistaxis, mild. Resolving. She complained of bleeding from right nostril. No active bleeding currently. DVT prophylaxis. On Heparin drip. Full code status
--- NOTE | 2017-06-22 11:08 | Emergency Department Report ---
ED General Adult HPI - General Chief complaint: Nosebleed Stated complaint: NOSE BLEED Time Seen by Provider: 06/22/17 09:48 Source: patient Mode of arrival: Ambulatory Limitations: No Limitations - History of Present Illness Initial comments: Patient states that she blew her nose earlier today and started having left chest pressure, intermittent then constant, non-radiating an hour prior to ER arrival. No shortness of breath, but there is nausea. Patient states that he has been compliant with her home medication. She was just discharged after being admitted for an anterior lateral STEMI and found to have 100% proximal LAD occlusion. From Chart review, patient does have a history of cocaine use. - Related Data Previous Rx's Medication Instructions Recorded Last Taken Type Famotidine [Pepcid] 20 mg PO BID #30 tablet 06/21/17 Unknown Rx RX: Aspirin EC [Aspirin Enteric 81 mg PO QDAY #30 tablet. 06/21/17 Unknown Rx Coated TAB] RX: Clopidogrel [Plavix] 75 mg PO QDAY #30 tablet 06/21/17 Unknown Rx RX: Lisinopril [Zestril TAB] 2.5 mg PO QDAY #30 tablet 06/21/17 Unknown Rx RX: Metoprolol [Lopressor TAB] 50 mg PO Q8H #90 tablet 06/21/17 Unknown Rx RX: Pravastatin [Pravachol] 40 mg PO QHS #30 tablet 06/21/17 Unknown Rx Allergies Allergy/AdvReac Type Severity Reaction Status Date / Time No Known Allergies Allergy Unverified 06/21/17 11:07 ED Review of Systems ROS: Stated complaint: NOSE BLEED Other details as noted in HPI Constitutional: denies: chills, fever Eyes: denies: eye pain, eye discharge, vision change ENT: denies: ear pain, throat pain Respiratory: denies: cough, shortness of breath, wheezing Cardiovascular: chest pain. denies: palpitations Endocrine: no symptoms reported Gastrointestinal: nausea. denies: abdominal pain, diarrhea Genitourinary: denies: urgency, dysuria, discharge Musculoskeletal: denies: back pain, joint swelling, arthralgia Skin: denies: rash, lesions Neurological: denies: headache, weakness, paresthesias Psychiatric: denies: anxiety, depression Hematological/Lymphatic: denies: easy bleeding, easy bruising ED Past Medical Hx - Past Medical History Previous Medical History?: Yes Hx Hypertension: Yes Hx Heart Attack/AMI: Yes (06/18/2017) Hx Psychiatric Treatment: Yes (anxiety) Additional medical history: gastric ulcers - Surgical History Past Surgical History?: Yes Additional Surgical History: cardiac catheterization 06/18/2017; stent placed, ? how many - Social History Smoking Status: Former Smoker Substance Use Type: None - Medications Home Medications: Home Medications Medication Instructions Recorded Confirmed Last Taken Type Famotidine [Pepcid] 20 mg PO BID #30 tablet 06/21/17 Unknown Rx RX: Aspirin EC [Aspirin Enteric 81 mg PO QDAY #30 tablet.dr 06/21/17 Unknown Rx Coated TAB] RX: Clopidogrel [Plavix] 75 mg PO QDAY #30 tablet 06/21/17 Unknown Rx RX: Lisinopril [Zestril TAB] 2.5 mg PO QDAY #30 tablet 06/21/17 Unknown Rx RX: Metoprolol [Lopressor TAB] 50 mg PO Q8H #90 tablet 06/21/17 Unknown Rx RX: Pravastatin [Pravachol] 40 mg PO QHS #30 tablet 06/21/17 Unknown Rx ED Physical Exam - General Limitations: No Limitations General appearance: alert, in no apparent distress - Head Head exam: Present: atraumatic, normocephalic - Eye Eye exam: Present: normal appearance - ENT ENT exam: Present: mucous membranes moist - Neck Neck exam: Present: normal inspection - Respiratory Respiratory exam: Present: normal lung sounds bilaterally. Absent: respiratory distress - Cardiovascular Cardiovascular Exam: Present: regular rate, normal rhythm. Absent: systolic murmur, diastolic murmur, rubs, gallop - GI/Abdominal GI/Abdominal exam: Present: soft, normal bowel sounds - Extremities Exam Extremities exam: Present: normal inspection - Neurological Exam Neurological exam: Present: alert, oriented X3 - Psychiatric Psychiatric exam: Present: normal affect, normal mood - Skin Skin exam: Present: warm, dry, intact, normal color. Absent: rash ED Course Vital Signs 06/22/17 06/22/17 06/22/17 08:52 09:18 09:30 Temperature 97.8 F Pulse Rate 77 79 74 Respiratory 18 24 9 L Rate Blood Pressure 148/103 156/97 O2 Sat by Pulse 98 Oximetry 06/22/17 06/22/17 06/22/17 09:45 09:55 10:00 Temperature Pulse Rate 83 96 H 86 Respiratory 15 15 Rate Blood Pressure 156/97 151/105 136/84 O2 Sat by Pulse Oximetry 06/22/17 10:19 Temperature Pulse Rate 83 Respiratory 15 Rate Blood Pressure 136/84 O2 Sat by Pulse Oximetry ED Medical Decision Making - Lab Data Result diagrams: 06/22/17 09:13 06/22/17 09:13 - EKG Data -: EKG Interpreted by Me (new inferior-lateral T wave inversions with some lateral ST depressions) EKG shows normal: sinus rhythm, axis, intervals, QRS complexes Rate: normal - EKG Data When compared to previous EKG there are: changes noted - Radiology Data Radiology results: report reviewed - Medical Decision Making 51-year-old female past medical history of cocaine abuse, ACS, Plavix that presents with one day of left chest pressure. Patient well-appearing her presentation. Vitals are stable. Chest x-ray unremarkable. Lab work significant for troponin elevation of 1.5. 4 days ago it was 1.8. She has new EKG T-wave inversions in inferior lateral leads. Chest pressures responding to nitroglycerin. Patient has been started on a heparin and nitroglycerin drip. I talked with the curator of education, Dr. Brock, he did not think that intervention was necessary. Patient will be admitted for further management. - Differential Diagnosis acs, ventricular aneurysm, Ptx, pna, cocaine-induced cp Critical care attestation.: If time is entered above; I have spent that time in minutes in the direct care of this critically ill patient, excluding procedure time. ED Disposition Clinical Impression: Unstable angina Disposition: - OP ADMIT IP TO THIS HOSP Is pt being admited?: Yes Does the pt Need Aspirin: No Condition: Stable Instructions: Angina (ED) Referrals: PRIMARY CARE, [Referring] - 3-5 Days
[2017-06-22] MEDS ORDERED: MORPHINE IV PRN (11:22)
[2017-06-22] MEDS ORDERED: SODIUM CHLORIDE FLUSH SYRINGE 10 ML IV PRN (11:22)
[2017-06-22] MEDS ORDERED: ZOFRAN IV PRN (11:22)
[2017-06-22] MEDS ORDERED: TYLENOL PO PRN (11:22)
[2017-06-22] MEDS ORDERED: D5NS 1,000 ML IV SCH (12:00)
[2017-06-22] MEDS ORDERED: PEPCID PO SCH (12:00)
[2017-06-22 12:07] LABS: Alanine Aminotransferase 34 units/L (7-56); Albumin 3.6 g/dL (3.9-5)
[2017-06-22 12:09] LABS: Bilirubin,Direct < 0.2 mg/dL (0-0.2)
[2017-06-22] MEDS: NITRO-BID 2% TP SCH ×2 (12:41→19:05)
[2017-06-22 14:02] LABS: Amphetamine Screen,Urine PRESUMPTIVE NEGATIVE; Methadone Screen,Urine PRESUMPTIVE NEGATIVE; Opiate Screen,Urine PRESUMPTIVE NEGATIVE
[2017-06-22 14:19] LABS: Benzodiazepines Screen,Urine PRESUMPTIVE POSITIVE; Cannabinoid Screen,Urine PRESUMPTIVE POSITIVE; Cocaine Screen,Urine PRESUMPTIVE POSITIVE
--- NOTE | 2017-06-22 14:58 | Consultation ---
History of Present Illness Consult date: 06/22/17 Consult reason: chest pain History of present illness: Patient is a 51yr old woman who was discharged from this hospital yesterday following anterolateral ST elevation myocardial infarction, treated with primary angioplasty and stenting of the LAD with a bare metal stent. She is on dual antiplatelet therapy with Plavix and Aspirin. There is also, a residual, dilated ischemic cardiomyopathy, with ejection fraction 20-25%. Patient returns to the emergency department with epistaxis. Hematocrit is stable. In addition, patient complained of pain under her left breast. Patient is resting in bed and appears comfortable. She describes chest pain as pressure when resting but relieved on exertion. She denies shortness of breath. ECG demonstrates a sinus rhythm with diffuse ST depressions. Past History Past Medical History: acute [place], CAD, other (Vfib arrest, peptic ulcer disease) Past Surgical History: PTCA Social history: lives with family, smoking (Smokes marijuana), other (Cocaine use) Family history: cancer, diabetes Medications and Allergies Allergies Allergy/AdvReac Type Severity Reaction Status Date / Time No Known Allergies Allergy Unverified 06/21/17 11:07 Home Medications Medication Instructions Recorded Confirmed Last Taken Type Aspirin EC [Aspirin Enteric Coated 81 mg PO QDAY #30 tablet.dr 06/21/1706/21/17 Rx TAB] Clopidogrel [Plavix] 75 mg PO QDAY #30 tablet 06/21/17 06/22/17 06/21/17 Rx Famotidine [Pepcid] 20 mg PO BID #30 tablet 06/21/17 06/22/17 06/21/17 Rx Lisinopril [Zestril TAB] 2.5 mg PO QDAY #30 tablet 06/21/17 06/22/17 06/21/17 Rx Metoprolol [Lopressor TAB] 50 mg PO Q8H #90 tablet 06/21/17 06/22/17 06/21/17 Rx Pravastatin [Pravachol] 40 mg PO QHS #30 tablet 06/21/17 06/22/17 06/21/17 Rx Active Meds: Active Medications Acetaminophen (Tylenol) 650 mg PO Q4H PRN PRN Reason: Pain MILD(1-3)/Fever >100.5/[facility] Aspirin (Halfprin Ec) 81 mg PO QDAY [facility] Clopidogrel Bisulfate (Plavix) 75 mg PO QDAY [facility] Heparin Sodium/Sodium Chloride (Heparin/ 0.45% Nacl-25,000 Unit/500 Ml) 25,000 unit in 500 mls @ 20 mls/hr IV TITRATE [facility]; Protocol Last Admin: 06/22/17 12:29 Dose: 1,000 units/hr, 20 mls/hr Dextrose/Sodium Chloride (D5ns) 1,000 mls @ 75 mls/hr IV DIRECT [facility] Lisinopril (Zestril) 2.5 mg PO QDAY [facility] Metoprolol Tartrate (Lopressor) 50 mg PO Q8H [facility] Morphine Sulfate (Morphine) 2 mg IV Q4H PRN PRN Reason: Pain, Moderate (4-6) Nitroglycerin (Nitrostat) 0.4 mg SL .Q5MIN PRN PRN Reason: Chest Pain Last Admin: 06/22/17 11:51 Dose: 0.4 mg Nitroglycerin (Nitro-Bid 2%) 0.5 inch TP TIDNTG [facility]; Protocol Last Admin: 06/22/17 12:41 Dose: 0.5 inch Ondansetron HCl (Zofran) 4 mg IV Q8H PRN PRN Reason: Nausea And Vomiting Pantoprazole Sodium (Protonix) 40 mg IV QDAY [facility] Pravastatin Sodium (Pravachol) 40 mg PO QHS [facility] Sodium Chloride (Sodium Chloride Flush Syringe 10 Ml) 10 ml IV BID [facility] Sodium Chloride (Sodium Chloride Flush Syringe 10 Ml) 10 ml IV PRN PRN PRN Reason: LINE FLUSH Physical Examination Vital Signs Temp Pulse Resp BP Pulse Ox 97.8 F 77 18 148/103 98 06/22/17 08:52 06/22/17 08:52 06/22/17 08:52 06/22/17 08:52 06/22/17 08:52 General appearance: no acute distress HEENT: Positive: PERRL Cardiac: Positive: Reg Rate and Rhythm Lungs: Positive: Decreased Breath Sounds Neuro: Positive: Grossly Intact Extremities: Absent: edema Results 06/22/17 09:13 06/22/17 09:13 Cardiac Enzymes 06/22/17 Range/Units 09:13 AST 31 (5-40) units/L Coagulation 06/22/17 Range/Units 09:13 PT 12.7 (12.2-14.9) Sec. INR 0.91 (0.87-1.13) APTT 34.8 (24.2-36.6) Sec. CBC 06/22/17 Range/Units 09:13 WBC 10.7 (4.5-11.0) K/mm3 RBC 3.88 (3.65-5.03) M/mm3 Hgb 12.1 (10.1-14.3) gm/dl Hct 36.1 (30.3-42.9) % Plt Count 197 (140-440) K/mm3 Lymph # 1.8 (1.2-5.4) K/mm3 [place] # 0.4 (0.0-0.8) K/mm3 Eos # 0.0 (0.0-0.4) K/mm3 Baso # 0.1 (0.0-0.1) K/mm3 Comprehensive Metabolic Panel 06/22/17 06/22/17 Range/Units 09:13 09:13 Sodium 139 (137-145) mmol/L Potassium 3.6 (3.6-5.0) mmol/L Chloride 99.7 (98-107) mmol/L Carbon Dioxide 26 (22-30) mmol/L BUN 12 (7-17) mg/dL Creatinine 0.9 (0.7-1.2) mg/dL Glucose 88 (65-100) mg/dL Calcium 9.0 (8.4-10.2) mg/dL Direct Bilirubin < 0.2 (0-0.2) mg/dL AST 31 (5-40) units/L ALT 34 (7-56) units/L Alkaline Phosphatase 73 (35-129) units/L Total Protein 7.2 (6.3-8.2) g/dL Albumin 3.6 L (3.9-5) g/dL Assessment and Plan Epistaxis Chest pain Recent anterolateral [place] s/p PCI of the prox LAD using a bare metal stent on plavix and aspirin Ischemic Cardiomyopathy EF 20-25% Drug abuse
[2017-06-22] MEDS: PLAVIX PO SCH (15:56)
[2017-06-22] MEDS: LOPRESSOR PO SCH (15:57)
[2017-06-22] MEDS: ZESTRIL PO SCH (15:57)
[2017-06-22] MEDS: PROTONIX IV SCH (15:58)
[2017-06-22 18:56] LABS: Creatine Kinase MB 3.5 ng/mL (0.0-4.0)
[2017-06-22] MEDS: TORADOL IV SCH (19:06)
[2017-06-22] MEDS ORDERED: PRAVACHOL PO SCH (22:00)
[2017-06-22] MEDS: HEPARIN SUB-Q SCH (22:01)
[2017-06-22] MEDS: SODIUM CHLORIDE FLUSH SYRINGE 10 ML IV SCH (22:01)
[2017-06-22 23:44] LABS: Creatine Kinase MB 3.5 ng/mL (0.0-4.0)
[2017-06-23] MEDS: LOPRESSOR PO SCH ×3 (00:06→16:28)
[2017-06-23] MEDS: TORADOL IV SCH ×2 (02:00→09:52)
[2017-06-23] MEDS: NITRO-BID 2% TP SCH ×2 (06:31→13:44)
[2017-06-23 06:37] LABS: Basophils % (Auto) 0.4 % (0.0-1.8); Eosinophils % (Auto) 0.5 % (0.0-4.3); Hematocrit 36.1 % (30.3-42.9); Hemoglobin 11.6 gm/dl (10.1-14.3); Lymphocytes # (Auto) 1.7 K/mm3 (1.2-5.4); Lymphocytes % (Auto) 22.7 % (13.4-35.0); Mean Corpuscular HGB Conc 32 % (30-34); Mean Corpuscular Hemoglobin 30 pg (28-32); Mean Corpuscular Volume 94 fl (79-97); Monocytes # (Auto) 0.3 K/mm3 (0.0-0.8); Monocytes % (Auto) 4.5 % (0.0-7.3); Platelet Count 191 K/mm3 (140-440); Red Blood Count 3.85 M/mm3 (3.65-5.03); Red Cell Distribution Width 13.5 % (13.2-15.2)
[2017-06-23 07:01] LABS: BUN/Creatinine Ratio 20; Blood Urea Nitrogen 14 mg/dL (7-17); Calcium 8.3 mg/dL (8.4-10.2); Hemolysis Index 21
[2017-06-23] MEDS ORDERED: K-DUR PO NR (08:00)
[2017-06-23] MEDS: PROTONIX IV SCH (09:48)
[2017-06-23] MEDS: ZESTRIL PO SCH (09:48)
[2017-06-23] MEDS: PLAVIX PO SCH (09:48)
[2017-06-23] MEDS: SODIUM CHLORIDE FLUSH SYRINGE 10 ML IV SCH (09:52)
[2017-06-23] MEDS: HEPARIN SUB-Q SCH (11:04)
[2017-06-23] MEDS ORDERED: HALFPRIN EC PO SCH (12:00)
--- NOTE | 2017-06-23 13:06 | Progress Note ---
Assessment and Plan Epistaxis Chest pain, musculoskeletal Recent anterolateral [place] s/p PCI of the prox LAD using a bare metal stent on plavix and aspirin Ischemic Cardiomyopathy EF 20-25% Drug abuse Continue medical therapy for coronary artery disease with aspirin and plavix without interruption. Stable cardiac up for discharge. Patient advised to f/u with a front end web designer within 1wk. Subjective Date of service: 06/23/17 Interval history: Patient reports she is feeling better. Objective Vital Signs Temp Pulse Resp BP BP Pulse Ox 06/23/17 10:55 97.9 F 65 20 145/96 99 06/23/17 07:47 98.3 F 73 20 128/78 99 06/23/17 05:26 71 18 132/83 99 06/23/17 05:25 98.9 F 06/23/17 00:25 98.8 F 93 H 18 127/77 100 06/23/17 00:14 98.3 F 73 18 127/77 100 06/22/17 20:20 80 06/22/17 19:46 98.9 F 68 18 129/89 97 06/22/17 16:14 98.6 F 81 20 125/81 99 06/22/17 14:07 97.8 F 72 15 130/96 - Physical Examination General: No Apparent Distress HEENT: Positive: PERRL Cardiac: Positive: Reg Rate and Rhythm Lungs: Positive: Decreased Breath Sounds Neuro: Positive: Grossly Intact Extremities: Absent: edema - Labs and Meds Cardiac Enzymes 06/22/17 06/22/17 Range/Units 17:36 22:48 CK-MB (CK-2) 3.5 3.5 (0.0-4.0) ng/mL CBC 06/23/17 Range/Units 05:55 WBC 7.6 (4.5-11.0) K/mm3 RBC 3.85 (3.65-5.03) M/mm3 Hgb 11.6 (10.1-14.3) gm/dl Hct 36.1 (30.3-42.9) % Plt Count 191 (140-440) K/mm3 Lymph # 1.7 (1.2-5.4) K/mm3 [place] # 0.3 (0.0-0.8) K/mm3 Eos # 0.0 (0.0-0.4) K/mm3 Baso # 0.0 (0.0-0.1) K/mm3 Comprehensive Metabolic Panel 06/23/17 Range/Units 05:55 Sodium 138 (137-145) mmol/L Potassium 3.5 L (3.6-5.0) mmol/L Chloride 98.0 (98-107) mmol/L Carbon Dioxide 23 (22-30) mmol/L BUN 14 (7-17) mg/dL Creatinine 0.7 (0.7-1.2) mg/dL Glucose 62 L (65-100) mg/dL Calcium 8.3 L (8.4-10.2) mg/dL
[2017-06-23] MEDS: COLCRYS PO SCH ×2 (13:44→16:30)
--- NOTE | 2017-06-23 14:56 | Discharge Summary ---
Providers - Providers Date of Admission: 06/22/17 11:22 Date of discharge: 06/23/17 Attending physician: RAN VENTURA 06/22/17 11:58 Consult to Physician [CONS] Routine Comment: Consulting Provider: NEVA HAINES Physician Instructions: Reason For Exam: Chest pressure,abnormal EKG Primary care physician: BELIA BULLARD Hospitalization Condition: Stable Pertinent studies: Chest x-ray: Unremarkable Hospital course: This is a 51-year-old woman who was discharged from the hospital on 06/21/17, after undergoing successful primary angioplasty and stenting of LAD. Her initial EKG was ST elevation involving the anterolateral as well as the inferior leads of the EKG. She did well and was discharged in stable condition. She returns to the hospital on 06/22/17 with complaining of epistaxis after she blew her nose. In addition, there was some left sided chest pain localized to the lower rib cage in the mid axillary line, which was not exertional, but was positional. Cardiology was consulted and per cardiology the pain was not reminiscent of her recent acute SC pain which was substernal in location. Patient was monitored with serial cardiac enzyme and EKG . She has recommended to continue medical therapy for coronary artery disease with aspirin and plavix without interruption. Cardiology cleared the patient for discharge and advised to f/u with offset printer outpatient within 1wk. Discharge diagnoses: Epistaxis, resolved Chest pain, musculoskeletal Recent anterolateral [place] s/p PCI of the prox LAD using a bare metal stent on plavix and aspirin Ischemic Cardiomyopathy EF 20-25% Drug abuse ( cocaine) Physical: GENERAL: well-developed and well-nourished female lying on bed appeared to be in no discomfort. HEENT: Normocephalic. Atraumatic. No conjunctival congestion or icterus. Patient has moist mucous membranes. NECK: Supple. Trachea midline. CHEST/LUNGS: Clear to auscultated bilaterally, breathing nonlabored. No wheezes crackles or rhonchi. HEART/CARDIOVASCULAR: Regular in rate and rhythm. S1 and S2 positive. ABDOMEN: Abdomen is soft, nontender. Patient has normal bowel sounds. SKIN: There is no rash. Warm and dry. NEURO: No focal motor deficit. Follows command. MUSCULOSKELETAL: No joint effusion or tenderness. EXTRIMITY: No edema, no cyanosis or clubbing. PSYCH: Cooperative. Disposition: DC-01 TO HOME OR SELFCARE Time spent for discharge: 32 minutes Core Measure Documentation - Palliative Care Palliative Care/ Comfort Measures: Not Applicable - Core Measures Any of the following diagnoses?: acute SC - Acute SC Discharge Requirements Aspirin at discharge: Yes MARÍA ELENA/ARB for LVSD if EF <40%: Yes Beta maggy at discharge: Yes Statin for LDL = or >100 mg/dl on DC: Yes Exam - Constitutional Vitals: Temp Pulse Resp BP Pulse Ox 97.9 F 65 20 145/96 99 06/23/17 10:55 06/23/17 10:55 06/23/17 10:55 06/23/17 10:55 06/23/17 10:55 Plan Activity: advance as tolerated Weight Bearing Status: Non-Weight Bearing Diet: low cholesterol, low salt Additional Instructions: Follow-up with ENT outpatient if nose bleeding recurs. Follow-up with [facility] in 1 week Follow up with: PRIMARY CAREMD [Referring] - 3-5 Days
[2017-06-23 16:23] VITALS: BP 143/96
[2017-06-24] MEDS ORDERED: PROTONIX PO SCH (10:00)
== END 2017-06-23 16:31 | disposition home or self-care (01) | DRG 150 ==
LOC: ED 08:01 → 4A 11:22
PROVIDERS: ADMIT Internal Medicine; ATTEND Internal Medicine
DX: R04.0 Epistaxis (principal); I21.09 ST elevation (STEMI) myocardial infarction involving other coronary artery of anterior wall; I25.110 Atherosclerotic heart disease of native coronary artery with unstable angina pectoris; F14.90 Cocaine use, unspecified, uncomplicated; I10 Essential (primary) hypertension; F41.9 Anxiety disorder, unspecified; I25.5 Ischemic cardiomyopathy; R07.89 Other chest pain; Z95.5 Presence of coronary angioplasty implant and graft; Z79.82 Long term (current) use of aspirin
CPT/HCPCS: 36415; 71046; 80048; 80074; 80307; 82550; 82553; 84484; 85025; 85610; 85730; 93005; 93010; 96365; 96366; A9270-GY; C9113; J1644; J1885

== ENCOUNTER 2019-04-08 14:28 | Emergency (ER) | payer SELFPAY ==
[2019-04-08] MEDS ORDERED: ONDANSETRON 4 MG ODT TAB PO ONE (16:19)
[2019-04-08] MEDS ORDERED: ONDANSETRON 4 MG ODT TAB ONE (16:22)
--- NOTE | 2019-04-08 16:22 | Emergency Department Report ---
Chief Complaint: Upper Respiratory Infection Stated Complaint: flu Time Seen by Provider: 04/08/19 16:16 - HPI History of Present Illness: 53 y/o female comes in for body aches, fever, sore throat vomiting and cough. Has not taking anything for her symptoms. Last vomited 30 mins ago. - Exam Vital Signs: Vital Signs 04/08/19 15:03 Temperature 100.9 F H Pulse Rate 98 H Respiratory 20 Rate Blood Pressure 157/92 O2 Sat by Pulse 99 Oximetry Physical Exam: axo times 3 NAD non toxic HEENT oral moist throat patent no swelling no redness Chest CTAB Cardic RRR Neuro ambulatory. MSE screening note: Focused history and physical exam performed. Due to findings the following was ordered: 53 y/o female comes in for body aches, fever, sore throat vomiting and cough. Has not taking anything for her symptoms. Last vomited 30 mins ago. Patient given Zofran 4mg po ED Disposition for MSE Condition: Stable
--- NOTE | 2019-04-08 19:01 | Emergency Department Report ---
ED General Adult HPI - General Chief complaint: Upper Respiratory Infection Stated complaint: FLU Time Seen by Provider: 04/08/19 16:16 Source: patient, EMS Mode of arrival: Wheelchair Limitations: No Limitations - History of Present Illness Initial comments: This is a 53-year-old female with a history of hypertension controlled with medication who presents to the ED complaining of headache, flank pain, abdominal pain, patient also has nausea, vomiting, fever. 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 Patient states abdominal pain is generalized. She denies chest pain, shortness of breath, dysuria, abnormal bleeding - Related Data Previous Rx's Medication Instructions Recorded Last Taken Type Ibuprofen [Motrin] 800 mg PO Q8HR #30 tablet 04/08/19 Unknown Rx Ondansetron [Zofran ODT TAB] 8 mg PO Q8HR #30 tab 04/08/19 Unknown Rx Allergies Allergy/AdvReac Type Severity Reaction Status Date / Time No Known Allergies Allergy Unverified 04/08/19 14:31 ED Review of Systems ROS: Stated complaint: FLU Other details as noted in HPI Comment: All other systems reviewed and negative ED Past Medical Hx - Past Medical History Hx Heart Attack/AMI: Yes - Surgical History Hx Coronary Stent: Yes (X2) - Social History Smoking Status: Never Smoker Substance Use Type: None - Medications Home Medications: Home Medications Medication Instructions Recorded Confirmed Last Taken Type Ibuprofen [Motrin] 800 mg PO Q8HR #30 tablet 04/08/19 Unknown Rx Ondansetron [Zofran ODT TAB] 8 mg PO Q8HR #30 tab 04/08/19 Unknown Rx ED Physical Exam - General Limitations: No Limitations General appearance: alert, in no apparent distress - Head Head exam: Present: atraumatic, normocephalic - Eye Eye exam: Present: normal appearance - ENT ENT exam: Present: mucous membranes moist - Neck Neck exam: Present: normal inspection - Respiratory Respiratory exam: Present: normal lung sounds bilaterally. Absent: respiratory distress, wheezes, rales, chest wall tenderness, accessory muscle use - Cardiovascular Cardiovascular Exam: Present: regular rate, normal rhythm. Absent: systolic murmur, diastolic murmur, rubs, gallop - GI/Abdominal GI/Abdominal exam: Present: soft, normal bowel sounds. Absent: distended, tenderness - Extremities Exam Extremities exam: Present: normal inspection - Back Exam Back exam: Present: normal inspection, full ROM, CVA tenderness (R), CVA tenderness (L) - Neurological Exam Neurological exam: Present: alert, oriented X3, normal gait - Psychiatric Psychiatric exam: Present: normal affect, normal mood - Skin Skin exam: Present: warm, dry, intact, normal color. Absent: rash ED Course Vital Signs 04/08/19 04/08/19 15:03 21:50 Temperature 100.9 F H 99.8 F H Pulse Rate 98 H 92 H Respiratory 20 18 Rate Blood Pressure 157/92 Blood Pressure 146/83 [Left] O2 Sat by Pulse 99 98 Oximetry - Reevaluation(s) Reevaluation #1: On reevaluation, patient states she is feeling a bit better. Patient states headache it has resolved, she is not exhibiting any vomiting Is resting and on the ED bed comfortably. She is in no acute distress. 04/08/19 20:26 ED Medical Decision Making - Radiology Data Radiology results: report reviewed, image reviewed Fluoro Time In Minutes: CHEST 2 VIEWS INDICATION / CLINICAL INFORMATION: Chest pain with dyspnea. COMPARISON: None available. FINDINGS: SUPPORT DEVICES: None. HEART / MEDIASTINUM: No significant abnormality. LUNGS / PLEURA: No significant pulmonary or pleural abnormality. No pneumothorax. ADDITIONAL FINDINGS: No significant additional findings. IMPRESSION: 1. No acute findings. Signer Name: El Hackett MD Signed: 04/08/2019 8:00 PM Workstation Name: [id number] Transcribed By: SONJA Dictated By: El Hackett MD Electronically Authenticated By: El Hackett MD Signed Date/Time: 04/08/191999 - Medical Decision Making This 53-year-old female presents to ED with UTIs/acute pyelo-. Patient was ill-appearing and toxic looking. Patient was actively vomiting in triage when she received Zofran ODT which patient vomited. Patient was resuscitated with IV fluids, chest x-ray and urinalysis was ordered to rule out UTI and pneumonia. Chest x-ray shows normalities, see report above. Urinalysis shows for UTI, treated with Rocephin in the ED. Fever reduced prior to discharge Discussed all findings with the patient. Upon reevaluation patient is feeling a bit better. Discussed with the patient to follow-up with primary care physician. Vital signs are normal patient is in no acute distress. - Differential Diagnosis viral syndrome, UTI, acute pyelo, pneumonia Critical Care Time: Yes (30) Critical care attestation.: If time is entered above; I have spent that time in minutes in the direct care of this critically ill patient, excluding procedure time. ED Disposition Clinical Impression: Acute cystitis, Fever, Acute pyelonephritis, Acute non intractable tension-type headache Disposition: TO HOME OR SELFCARE Is pt being admited?: No Does the pt Need Aspirin: No Condition: Stable Instructions: Urinary Tract Infection in Women (ED), Flank Pain (ED) Additional Instructions: Make sure to follow up with the primary care physician as discussed. Take all your medications as you've been prescribed. If you have any worsening symptoms or develop new symptoms please return to ED immediately. Prescriptions: Ibuprofen [Motrin] 800 mg PO Q8HR #30 tablet Ondansetron [Zofran ODT TAB] 8 mg PO Q8HR #30 tab Referrals: PRIMARY CARE, [Primary Care Provider] - 3-[address] [facility] [Outside] - 3-5 Days [facility] [Outside] - 3-5 Days [facility] [Outside] - 3-5 Days Forms: Work/School Release Form(ED) Time of Disposition: 20:24
[2019-04-08] MEDS ORDERED: SODIUM CHLORIDE 0.9% 1000 ML 1,000 ML IV ONE (19:02)
[2019-04-08] MEDS ORDERED: diphenhydrAMINE 50 MG/ML VIAL IV ONE (19:03)
[2019-04-08] MEDS ORDERED: KETOROLAC 30 MG/1 ML INJ IV ONE (19:03)
[2019-04-08] MEDS ORDERED: METOCLOPRAMIDE 10 MG/2 ML INJ IV ONE (19:03)
[2019-04-08 19:06] LABS: Bacteria,Urine 1+ /HPF (Negative); Bilirubin,Urine NEG (Negative); Blood,Urine MOD (Negative); Color,Urine Yellow (Yellow); Mucus,Urine 3+ /HPF; Urobilinogen,Urine < 2.0 mg/dL (<2.0)
--- NOTE | 2019-04-08 20:04 | XRay Report ---
CHEST 2 VIEWS INDICATION / CLINICAL INFORMATION: Chest pain with dyspnea. COMPARISON: None available. FINDINGS: SUPPORT DEVICES: None. HEART / MEDIASTINUM: No significant abnormality. LUNGS / PLEURA: No significant pulmonary or pleural abnormality. No pneumothorax. ADDITIONAL FINDINGS: No significant additional findings. IMPRESSION: 1. No acute findings. Signer Name: El Hackett MD Signed: 04/08/2019 8:00 PM Workstation Name: [id number]
[2019-04-08 21:51] VITALS: BP 146/83
== END 2019-04-08 21:51 | disposition home or self-care (01) ==
LOC: MERGE 14:28 → ED 14:28
DX: N30.00 Acute cystitis without hematuria (principal); N10 Acute pyelonephritis; G44.209 Tension-type headache, unspecified, not intractable; I25.2 Old myocardial infarction; Z95.5 Presence of coronary angioplasty implant and graft
CPT/HCPCS: 71046; 81001; 87086; 96361; 96365; 96375; 99284; J0696; J1200; J1885; J2765; J7030; Q0162

== ENCOUNTER 2021-04-23 05:41 | Emergency (ER) | payer OTHER ==
[2021-04-23] MEDS ORDERED: ASPIRIN 81 MG TAB CHEW PO ONE (07:44)
[2021-04-23 08:00] LABS: Basophils % (Auto) 0.5 % (0.0-1.8); Eosinophils % (Auto) 0.2 % (0.0-4.3); Hematocrit 38.5 % (30.3-42.9); Hemoglobin 12.8 gm/dl (10.1-14.3); Lymphocytes # (Auto) 1.7 K/mm3 (1.2-5.4); Lymphocytes % (Auto) 22.7 % (13.4-35.0); Mean Corpuscular HGB Conc 33 % (30-34); Mean Corpuscular Volume 89 fl (79-97); Monocytes # (Auto) 0.2 K/mm3 (0.0-0.8); Monocytes % (Auto) 2.8 % (0.0-7.3); Platelet Count 245 K/mm3 (140-440); Red Blood Count 4.33 M/mm3 (3.65-5.03)
--- NOTE | 2021-04-23 08:13 | XRay Report ---
CHEST PA AND LATERAL VIEWS INDICATION: Chest Pain. COMPARISON: 04/08/2019 FINDINGS: Support devices: None. Heart: Within normal limits. Lungs/Pleura: No acute pulmonary or pleural findings. IMPRESSION: 1. No acute findings. Signer Name: Eron Jones MD Signed: 04/23/2021 8:08 AM Workstation Name: [id number]
[2021-04-23 08:24] LABS: Alanine Aminotransferase 16 units/L (7-56); Blood Urea Nitrogen 12 mg/dL (7-17); Calcium 8.4 mg/dL (8.4-10.2); Hemolysis Index 59
[2021-04-23 08:31] LABS: BUN/Creatinine Ratio 17
--- NOTE | 2021-04-23 09:35 | Emergency Department Report ---
ED Chest Pain HPI - General Chief Complaint: Chest Pain Stated Complaint: CHEST PAIN/LT LEG PAIN PUI?: No Time Seen by Provider: 04/23/21 07:40 Source: patient Mode of arrival: Ambulatory Limitations: No Limitations - History of Present Illness Initial Comments: 55 yo comes to ER co chest pain to RN When I get her to room she says her chest is not the problem it is her RLE. She thinks she has a blood clot. She says she thought saying she had chest pain would get her to ER faster. No sob no fever or chills no trauma She is taking her home meds including plavix pain is from buttock to knee of the right leg - ache in nature. no swelling Pt ambulatory to ER MD Complaint: chest pain Pain Location: left chest Severity scale (0 -10): 10 Quality: tightness Improves With: nothing Worsens With: nothing re: denies: nausea, vomting, diaphoresis, dyspnea, sense of impending doom Other Symptoms: denies: cough, fever, syncope, rash, acid taste in mouth, leg swelling, palpitations, burping Treatments Prior to Arrival: none Aspirin use within the Past 7 Days: (1) Yes - Related Data On Oral Contraceptives: No Previous Rx's Medication Instructions Recorded Last Taken Type Aspirin EC [Halfprin EC] 81 mg PO QDAY #30 tablet. 06/21/17 06/21/17 Rx Clopidogrel [Plavix] 75 mg PO QDAY #30 tablet 06/21/17 06/21/17 Rx Famotidine [Pepcid] 20 mg PO BID #30 tablet 06/21/17 06/21/17 Rx Metoprolol [Lopressor TAB] 50 mg PO Q8H #90 tablet 06/21/17 06/21/17 Rx Pravastatin [Pravachol] 40 mg PO QHS #30 tablet 06/21/17 06/21/17 Rx lisinopriL [Zestril TAB] 2.5 mg PO QDAY #30 tablet 06/21/17 06/21/17 Rx Ibuprofen [Motrin] 800 mg PO Q8HR #30 tablet 04/08/19 Unknown Rx Ondansetron [Zofran ODT TAB] 8 mg PO Q8HR #30 tab 04/08/19 Unknown Rx Allergies Allergy/AdvReac Type Severity Reaction Status Date / Time No Known Allergies Allergy Unverified 04/11/19 11:34 Heart Score - HEART Score History: Slightly suspicious EKG: Normal Age: < 45 Risk factors: No known risk factors Troponin: 1-3x normal limit HEART Score: 1 - EKG Read Time Time EKG Completed: 06:00 EKG Read Time: 06:00 - Critical Actions Critical Actions: 0-3 pts:0.9-1.7%risk of adverse cardiac event.Candidate for discharge ED Review of Systems ROS: Stated complaint: CHEST PAIN/LT LEG PAIN Other details as noted in HPI Comment: All other systems reviewed and negative ED Past Medical Hx - Past Medical History Previous Medical History?: Yes Hx Hypertension: Yes Hx Heart Attack/AMI: Yes (06/18/2017) Hx Psychiatric Treatment: Yes (anxiety) Hx HIV: No Additional medical history: gastric ulcers - Surgical History Past Surgical History?: Yes Hx Coronary Stent: Yes (X2) Additional Surgical History: cardiac catheterization 06/18/2017; stent placed, ?how many - Family History Family history: no significant - Social History Smoking Status: Never Smoker Substance Use Type: None - Medications Home Medications: Home Medications Medication Instructions Recorded Confirmed Last Taken Type Aspirin EC [Halfprin EC] 81 mg PO QDAY #30 tablet. 06/21/17 06/22/17 06/21/17 Rx Clopidogrel [Plavix] 75 mg PO QDAY #30 tablet 06/21/17 06/22/17 06/21/17 Rx Famotidine [Pepcid] 20 mg PO BID #30 tablet 06/21/17 06/22/17 06/21/17 Rx Metoprolol [Lopressor TAB] 50 mg PO Q8H #90 tablet 06/21/17 06/22/17 06/21/17 Rx Pravastatin [Pravachol] 40 mg PO QHS #30 tablet 06/21/17 06/22/17 06/21/17 Rx lisinopriL [Zestril TAB] 2.5 mg PO QDAY #30 tablet 06/21/17 06/22/17 06/21/17 Rx Ibuprofen [Motrin] 800 mg PO Q8HR #30 tablet 04/08/19 Unknown Rx Ondansetron [Zofran ODT TAB] 8 mg PO Q8HR #30 tab 04/08/19 Unknown Rx ED Physical Exam - General Limitations: No Limitations General appearance: alert, in no apparent distress - Head Head exam: Present: atraumatic, normocephalic - Eye Eye exam: Present: normal appearance - ENT ENT exam: Present: mucous membranes moist - Neck Neck exam: Present: normal inspection - Respiratory Respiratory exam: Present: normal lung sounds bilaterally. Absent: respiratory distress - Cardiovascular Cardiovascular Exam: Present: regular rate, normal rhythm. Absent: systolic murmur, diastolic murmur, rubs, gallop - GI/Abdominal GI/Abdominal exam: Present: soft, normal bowel sounds - Extremities Exam Extremities exam: Present: normal inspection - Back Exam Back exam: Present: normal inspection - Neurological Exam Neurological exam: Present: alert, oriented X3 - Psychiatric Psychiatric exam: Present: normal affect, normal mood - Skin Skin exam: Present: warm, dry, intact, normal color. Absent: rash ED Course Vital Signs 04/23/21 04/23/21 05:47 10:57 Temperature 98.0 F 97.7 F Pulse Rate 100 H 69 Respiratory 18 18 Rate Blood Pressure 139/92 134/76 [Right] O2 Sat by Pulse 99 97 Oximetry MATT score - Matt Score Age > 65: (0) No Aspirin use within the Past 7 Days: (0) No 3 or more CAD Risk Factors: (1) Yes 2 or more Angina events in past 24 hrs: (0) No Known CAD with more than 50% Stenosis: (0) No Elevated Cardiac Markers: (0) No ST Deviation Greater than 0.5mm: (0) No MATT Score: 1 ED Medical Decision Making - Lab Data Result diagrams: 04/23/21 07:50 04/23/21 07:50 - EKG Data -: EKG Interpreted by Co EKG shows normal: sinus rhythm Rate: normal - EKG Data When compared to previous EKG there are: no significant change Interpretation: no acute changes - Radiology Data Radiology results: report reviewed, image reviewed [facility] - Medical Decision Making Lab Results 04/23/21 04/23/21 Range/Units 07:50 07:50 WBC 7.3 (4.5-11.0) K/mm3 RBC 4.33 (3.65-5.03) M/mm3 Hgb 12.8 (10.1-14.3) gm/dl Hct 38.5 (30.3-42.9) % MCV 89 (79-97) fl MCH 30 (28-32) pg MCHC 33 (30-34) % RDW 14.0 (13.2-15.2) % Plt Count 245 (140-440) K/mm3 Lymph % (Auto) 22.7 (13.4-35.0) % [place] % (Auto) 2.8 (0.0-7.3) % Eos % (Auto) 0.2 (0.0-4.3) % Baso % (Auto) 0.5 (0.0-1.8) % Lymph # (Auto) 1.7 (1.2-5.4) K/mm3 [place] # (Auto) 0.2 (0.0-0.8) K/mm3 Eos # (Auto) 0.0 (0.0-0.4) K/mm3 Baso # (Auto) 0.0 (0.0-0.1) K/mm3 Seg Neutrophils % 73.8 H (40.0-70.0) % Seg Neutrophils # 5.4 (1.8-7.7) K/mm3 Sodium 142 (137-145) mmol/L Potassium 4.6 (3.6-5.0) mmol/L Chloride 105.6 (98-107) mmol/L Carbon Dioxide 23 (22-30) mmol/L Anion Gap 18 mmol/L BUN 12 (7-17) mg/dL Creatinine 0.7 (0.6-1.2) mg/dL Estimated GFR > 60 ml/min BUN/Creatinine Ratio 17 % Glucose 103 H (65-100) mg/dL Calcium 8.4 (8.4-10.2) mg/dL Total Bilirubin 0.20 (0.1-1.2) mg/dL AST 16 (5-40) units/L ALT 16 (7-56) units/L Alkaline Phosphatase 83 (35-129) units/L Troponin T < 0.010 (0.00-0.029) ng/mL Total Protein 7.6 (6.3-8.2) g/dL Albumin 4.0 (3.9-5) g/dL Albumin/Globulin Ratio 1.1 % Vital Signs 04/23/21 05:47 Temperature 98.0 F Pulse Rate 100 H Respiratory 18 Rate Blood Pressure 139/92 [Right] O2 Sat by Pulse 99 Oximetry labs noted ekg noted xray noted us neg for dvt pt dc home with dc plan of care including diet/activity/meds and follow up. She verbalizes understanding of plan of care. - Differential Diagnosis ro acs/dvt Critical care attestation.: If time is entered above; I have spent that time in minutes in the direct care of this critically ill patient, excluding procedure time. ED Disposition Clinical Impression: Leg pain Qualifiers: Laterality: right Qualified Code(s): M79.604 - Pain in right leg Disposition: 01 HOME / SELF CARE / HOMELESS Is pt being admited?: No Does the pt Need Aspirin: No Condition: Stable Instructions: Acute Knee Pain, Adult Additional Instructions: follow up with pcp and cards mery referrals below continue home meds motrin or tylenol for pain Referrals: FLAVIA ARVIZU MD [Staff Physician] - 3-5 Days NEVA HAINES MD [Staff Physician] - 3-5 Days Time of Disposition: 10:37
--- NOTE | 2021-04-23 10:45 | Vascular Lab Report ---
DUPLEX DOPPLER LOWER EXTREMITY VEINS, LEFT INDICATION / CLINICAL INFORMATION: LLE PAIN. TECHNIQUE: Duplex doppler imaging was performed through the veins of the left lower extremity using venous compr ession and other maneuvers. COMPARISON: None available. FINDINGS: LEFT COMMON FEMORAL VEIN: Negative. LEFT FEMORAL VEIN: Negative. LEFT POPLITEAL VEIN: Negative. LEFT CALF VEINS: Negative. ADDITIONAL FINDINGS: None. IMPRESSION: 1. No sonographic evidence for DVT in the left lower extremity. Signer Name: Jerrell Harmon MD Signed: 04/23/2021 10:41 AM Workstation Name: [id number]
[2021-04-23 10:58] VITALS: BP 134/76
--- NOTE | 2021-04-23 14:12 | Electrocardiograph Report ---
[facility] Test Date: 2021-04-23 Test Time: 05:57:13 Pat Name: ANNABELLE JIMENEZ Department: Room: Gender: F [employer]wall Installer: NURSE : 1965 Requested By: JACQUELYN PALACIOS Order Number: [id number] Reading MD: Chelo Brock Measurements Intervals [place] Rate: 87 P: 83 CT: 161 QRS: 63 QRSD: 80 T: 39 QT: 369 QTc: 444 Interpretive Statements Sinus rhythm Probable left atrial enlargement Anteroseptal infarct, age indeterminate No previous ECG available for comparison Electronically Signed On 04-23-2021 14:11:46 EST by Chelo Brock
== END 2021-04-23 10:49 | disposition home or self-care (01) ==
LOC: ED 05:41
DX: M79.604 Pain in right leg (principal); I10 Essential (primary) hypertension; I21.9 Acute myocardial infarction, unspecified; F41.9 Anxiety disorder, unspecified; Z98.890 Other specified postprocedural states
CPT/HCPCS: 36415; 71046; 80053; 84484; 85025; 93005; 93010; 99284